=== PATIENT | female | born 1970 | race Caucasian/White ===

== ENCOUNTER 2016-08-16 00:34 | Emergency (ER) | payer OTHER ==
[2016-08-16 01:06] VITALS: BP 160/97; PULSE 78; TEMP 98.1; BMI 34.4
== END 2016-08-16 03:31 | disposition left against medical advice (07) ==
LOC: JER 00:34
DX: Z53.21 Procedure and treatment not carried out due to patient leaving prior to being seen by health care provider (principal)
CPT/HCPCS: 99281-25

== ENCOUNTER 2017-09-28 17:57 | Emergency (ER) | payer OTHER ==
--- NOTE | 2017-09-28 18:03 | PDOC ---
History of Present Illness - General Chief Complaint: Chest Pain Stated Complaint: CHEST PAIN Time Seen by Provider: 09/28/17 18:03 - History of Present Illness Initial Comments: 09/28/17 12:49 The patient is a 47 year old female with a history of DM who presents for evaluation of generalized weakness and chest pain. The patient is accompanied by family who assist in providing the history. They note that the patient recently presented to [facility] earlier this morning for these same symptoms and was diagnosed with hyperglycemia and discharged home after being medically cleared. The patient continued to experience symptoms prompting her presentation to the ED for further evaluation. The patient complains of generalized weakness and poorly described chest pain over the past 1 day. She otherwise denies fevers, chills, SOB, nausea, vomiting, or changes with urination or bowel movements. She does endorse some RUQ abdominal pain as well. Past History - Past Medical History Allergies/Adverse Reactions: Allergies Allergy/AdvReac Type Severity Reaction Status Date / Time No Known Allergies Allergy Verified 09/28/17 18:11 - Reproductive History (#): 9 Para: 8 Ectopic : No Polycystic Ovaries: No - Suicide/Smoking/Psychosocial Hx Smoking Status: No Smoking History: Never smoked Number of Cigarettes Smoked Daily: 0 Review of Systems - Review of Systems Comments:: 09/29/17 12:54 Constitutional: Fatigue. No fevers, chills, malaise HEENT: No Rhinorrhea, nasal congestion, visual changes Cardiovascular: Chest pain. No syncope, palpitations, lightheadedness Respiratory: No Cough, SOB, Hemoptysis, Gastrointestinal: Abdominal pain. No Nausea, Vomiting, Constipation, Diarrhea, Melena Genitourinary: No Dysuria, Frequency, Urgency, Hesitancy, Hematuria, Flank pain Musculoskeletal: No Myalgia, arthralgia Skin: No rashes, itching, bruising, pallor Neurologic: No Headache, Dizziness, Numbness, Weakness, or Tingling Psychiatric: No Hallucinations. No SI or HI *Physical Exam - Physical Exam Comments: 09/29/17 12:55 General Appearance: Nourished. No Apparent Distress HEENT: EOMI, MARILYN. No Pharyngeal Erythema, Tonsillar Exudate, Tonsillar Erythema Neck: No Cervical Lymphadenopathy Respiratory/Chest: Lungs Clear, Normal Breath Sounds. No Crackles, Rales, Rhonchi, Wheezing Cardiovascular: Regular Rhythm, Regular Rate. No Murmur, Gallops, Rubs Gastrointestinal/Abdominal: Normal Bowel Sounds, Soft. Mild Tenderness to palpation in the RUQ on exam. No Guarding, Rebound, Musculoskeletal: No CVA Tenderness Extremity: Normal Capillary Refill Integumentary: Normal Color, Dry, Warm Neurologic: Fully Oriented, Alert, Normal Mood/Affect, Normal Response, Heart Score/ECG Review #1 ECG reviewed & interpreted by me at: 12:56 General ECG Interpretation: Sinus Rhythm, Normal Rate, Normal Intervals, No acute ischemic changes ED Treatment Course - LABORATORY CBC & Chemistry Diagram: 09/28/17 18:15 09/28/17 18:15 Medical Decision Making - Medical Decision Making 09/29/17 12:56 The patient is a 47 year old female with a history of DM who presents for evaluation of generalized weakness and chest pain. Differential includes but is not limited to: ACS, Pneumonia, UTI, Cholecystitis, Hyperglycemia, Infectious , Metabolic derangement. Given the patient's symptoms we obtain a cbc which demonstrated an elevated wbc to 13.5. CMP demonstrated elevated glucose to 280 with a normal anion gap. UA demonstrated glucose in the urine. Gallbladder US obtained did not demonstrate cholecystitis as read by our radiologist. Chest plain was unremarkable as preliminarily read by ER physician. Two sets of Troponin were unremarkable. The patient reported significant improvement in her symptoms after iv fluids and iv tylenol. It is likely her symptoms are due to a viral syndrome. We are comfortable discharging the patient home with primary care provider follow up. We discussed the results, plan, and strict return precautions with the patient and her family who voiced understanding and is agreeable with the plan. *DC/Admit/Observation/Transfer Diagnosis at time of Disposition: Abdominal pain Qualifiers: Abdominal location: unspecified location Qualified Code(s): R10.9 - Unspecified abdominal pain Fever Qualifiers: Fever type: unspecified Qualified Code(s): R50.9 - Fever, unspecified - Discharge Dispostion Disposition: HOME Condition at time of disposition: Stable Decision to Admit order: No - Referrals - Patient Instructions Printed Discharge Instructions: DI for Viral Syndrome, DI for Chest Pain Additional Instructions: Please return to the ER if you experience concerning or worsening symptoms including worsening chest pain, fevers, or abdominal pain or vomiting. Your symptoms are likely due to a viral illness and you may use ibuprofen as needed at home to help manage your symptoms. Please call to schedule a follow up appointment with your primary care provider within 2-3 days to discuss your ER visit and further management of your symptoms. - Post Discharge Activity
[2017-09-28 18:11] VITALS: BMI 20.3
[2017-09-28 18:54] LABS: BASO % 0.9 % (0-2.0); EOS % 1.3 % (0-4.5); HEMATOCRIT 39.8 % (32.4-45.2); HEMOGLOBIN 12.7 GM/dL (10.7-15.3); LYMPH % 13.7 % (8-40); MCH 26.6 pg (25.7-33.7); MEAN CELL VOLUME 82.9 fl (80-96); MEAN PLT VOLUME 10.3 fl (7.5-11.1); MONO % 6.3 % (3.8-10.2); NEUT % 77.8 % (42.8-82.8); PLATELET COUNT 223 K/MM3 (134-434); RDW 13.5 % (11.6-15.6); WHITE BLOOD COUNT 13.6 K/mm3 (4.0-10.0)
[2017-09-28] MEDS ORDERED: SODIUM CHLORIDE 1,000 ML IV STA (19:10)
[2017-09-28 19:21] LABS: URINE APPEARANCE CLEAR; URINE BILIRUBIN NEGATIVE (<2.0 mg/dL); URINE COLOR LTYELLOW; URINE GLUCOSE (UA) 3+ (NEGATIVE); URINE KETONE TRACE (NEGATIVE); URINE LEUK ESTERASE NEGATIVE (NEGATIVE); URINE NITRITE NEGATIVE (NEGATIVE); URINE UROBILINOGEN NEGATIVE mg/dL (0.2-1.0)
[2017-09-28 19:24] LABS: ALBUMIN 3.1 g/dl (3.4-5.0); ANION GAP 7 (8-16); BLOOD UREA NITROGEN 5 mg/dL (7-18); CALCIUM 8.9 mg/dL (8.5-10.1); CHLORIDE 103 mmol/L (98-107); CO2 26 mmol/L (21-32); CREATININE 0.7 mg/dL (0.55-1.02); GLUCOSE,RANDOM 232 mg/dL (74-106); LIPASE 96 U/L (73-393); POTASSIUM 3.6 mmol/L (3.5-5.1); SGOT/AST 11 U/L (15-37); SGPT/ALT 22 U/L (12-78); SODIUM 136 mmol/L (136-145)
[2017-09-28 19:25] LABS: ALK PHOS 99 U/L (45-117); BILIRUBIN,TOTAL 0.7 mg/dL (0.2-1.0); TOT PROT 6.7 g/dl (6.4-8.2)
[2017-09-28 19:27] LABS: URINE PROTEIN 1+ (NEGATIVE)
[2017-09-28 19:36] LABS: EPI CELLS RARE /HPF (FEW); URINE MUCUS RARE
[2017-09-28] MEDS ORDERED: ACETAMINOPHEN 1000 MG/100 ML VIAL (NON FORMULARY) IVPB ONE (20:06)
--- NOTE | 2017-09-28 20:27 | PDOC ---
Attending Attestation - Resident Resident Name: French Chow - ED Attending Attestation I have performed the following: I have examined & evaluated the patient, The case was reviewed & discussed with the resident, I agree w/resident's findings & plan, Exceptions are as noted - Medical Decision Making 09/28/17 21:10 47yo F with hx HTN, NIDDM presents to the ED with multiple complaints including CP, fever, weakness, RUQ pain. Vitals unremarkable. Exam with inferior sternal ttp. Unclear what the etiology of the patients symptoms are, will check labs, UA , CXR, treat symptoms, and reassess. With regards to CP, HS is 3 as EKG is non ischemic, and cp is reproducible. Will check 2 troponins. Heart Score/ECG Review - History History: Slightly suspicious - Electrocardiogram EKG: Normal - Age Age: 45-65 - Risk Factors Based on the list above the patient has:: >/=3 risk factors or Hx atherosclerotic disease - Troponin Troponin: </= normal limit - Score Heart Score - Total: 3 #1 09/28/17 20:57 Twelve-lead EKG was performed and reviewed by me. Normal sinus rhythm, rate 94. Normal axis and intervals. No ST elevations
[2017-09-28] MEDS ORDERED: ACETAMINOPHEN INJECTION 100 ML IVPB ONE (20:41)
[2017-09-28] MEDS ORDERED: METOCLOPRAMIDE HCL INJECTION 10 MG/2 ML VIAL IVPUSH ONE (20:43)
[2017-09-28] MEDS ORDERED: METOCLOPRAMIDE HCL INJECTION 10 MG/2 ML VIAL ONE (20:58)
[2017-09-28 21:10] VITALS: TEMP 101.9
[2017-09-28] MEDS ORDERED: KETOROLAC TROMETHAMINE 15 MG/ML VIAL IVPUSH ONE (23:04)
[2017-09-28] MEDS ORDERED: KETOROLAC TROMETHAMINE 15 MG/ML VIAL ONE (23:34)
[2017-09-28 23:45] VITALS: BP 130/65; PULSE 88
--- NOTE | 2017-09-29 08:52 | EKG ---
Test Reason : Blood Pressure : / mmHG Vent. Rate : 094 BPM Atrial Rate : 094 BPM P-R Int : 142 ms QRS Dur : 100 ms QT Int : 340 ms P-R-T Axes : 046 007 009 degrees QTc Int : 425 ms NORMAL SINUS RHYTHM NORMAL ECG WHEN COMPARED WITH ECG OF 02-MAY-2006 15:28, NO SIGNIFICANT CHANGE WAS FOUND Confirmed by EVGENY SWENSON MD ([id number]) on 09/29/2017 8:51:40 AM Referred By: Confirmed By:EVGENY SWENSON MD
== END 2017-09-29 | disposition home or self-care (01) ==
LOC: JER 17:57
PROC: 3E0337Z Introduction of Electrolytic and Water Balance Substance into Peripheral Vein, Percutaneous Approach (ICD-10-PCS; principal; 2017-09-28)
PROC: 3E033NZ Introduction of Analgesics, Hypnotics, Sedatives into Peripheral Vein, Percutaneous Approach (ICD-10-PCS; 2017-09-28)
PROC: 3E033GC Introduction of Other Therapeutic Substance into Peripheral Vein, Percutaneous Approach (ICD-10-PCS; 2017-09-28)
DX: B34.9 Viral infection, unspecified (principal); R50.81 Fever presenting with conditions classified elsewhere; E11.9 Type 2 diabetes mellitus without complications; Z79.84 Long term (current) use of oral hypoglycemic drugs
CPT/HCPCS: 36415; 71046-TC-FY; 76705-TC; 80053; 81003; 81015; 82550; 83690; 84484; 84703; 85025; 87804; 93005; 93010; 96361; 96374; 96375; 99283-25; J0131; J7030

== ENCOUNTER 2017-10-11 16:33 | Emergency (ER) | payer OTHER ==
[2017-10-11 17:06] VITALS: TEMP 97.7; BMI 34.0
[2017-10-11] MEDS ORDERED: SODIUM CHLORIDE 0.9% 1000 ML INFUS.BAG IV ONE (18:00)
[2017-10-11] MEDS ORDERED: METOCLOPRAMIDE HCL INJECTION 10 MG/2 ML VIAL IVPUSH ONE (18:00)
--- NOTE | 2017-10-11 18:07 | PDOC ---
History of Present Illness - General History Source: Patient Exam Limitations: No Limitations - History of Present Illness Initial Comments: 10/11/17 18:30 The patient is a 47 year old female with a significant PMH of hypertension and diabetes who presents to the emergency department with chest pain since earlier today. The patient reports that she was at home cooking when she began to feel an onset of chest pain. The patient describes her chest pain as sharp and non radiating. She reports associated SOB, dizziness and nausea with her chest pain. The patient reports that she began to experience bleeding from her nose and mouth, chills and lightheadedness secondary to her nausea. The patient reports eating a bowl of cereal . She states that she has experienced a similar feeling like this before when her blood glucose was low. The patient denies any other symptoms. She denies any headache fever,chest pain, shortness of breath, dizziness, nausea, vomit, diarrhea, constipation or urinary symptoms. The patient denies any other complaints. <Светлана Stroud - Last Filed: 10/11/17 18:30> <Josephine Correa - Last Filed: 10/11/17 23:48> - General Chief Complaint: Chest Pain Stated Complaint: Nasal Bleeding Time Seen by Provider: 10/11/17 16:59 Past History <Светлана Stroud - Last Filed: 10/11/17 18:30> - Past Medical History COPD: No Diabetes: Yes HTN: Yes - Reproductive History (#): 9 Para: 8 Ectopic : No Polycystic Ovaries: No - Suicide/Smoking/Psychosocial Hx Smoking Status: No Smoking History: Never smoked Have you smoked in the past 12 months: No Number of Cigarettes Smoked Daily: 0 Hx Alcohol Use: No Drug/Substance Use Hx: No Substance Use Type: None <Josephine Correa - Last Filed: 10/11/17 23:48> - Past Medical History Allergies/Adverse Reactions: Allergies Allergy/AdvReac Type Severity Reaction Status Date / Time No Known Allergies Allergy Verified 10/11/17 17:06 Home Medications: Ambulatory Orders Cephalexin [Keflex] 500 mg PO BID #14 capsule 10/11/17 Review of Systems - Review of Systems Able to Perform ROS?: Yes Comments:: 10/11/17 18:31 GENERAL/CONSTITUTIONAL: (+)chills, nasal and mouth bleeding. No fever .No weakness. HEAD, EYES, EARS, NOSE AND THROAT: No change in vision. No ear pain or discharge. No sore throat. CARDIOVASCULAR: (+) chest pain , shortness of breath. RESPIRATORY: No cough, wheezing, or hemoptysis. GASTROINTESTINAL: No nausea, vomiting, diarrhea or constipation. GENITOURINARY: No dysuria, frequency, or change in urination. MUSCULOSKELETAL: No joint or muscle swelling or pain. No neck or back pain. SKIN: No rash NEUROLOGIC: (+)lightheaded. No headache, vertigo, loss of consciousness, or change in strength/sensation. ENDOCRINE: No increased thirst. No abnormal weight change. HEMATOLOGIC/LYMPHATIC: No anemia, easy bleeding, or history of blood clots. ALLERGIC/IMMUNOLOGIC: No hives or skin allergy. <Светлана Stroud - Last Filed: 10/11/17 18:30> *Physical Exam - Vital Signs Last Vital Signs Temp Pulse Resp BP Pulse Ox 97.7 F 81 22 153/93 99 10/11/17 17:03 10/11/17 17:03 10/11/17 17:03 10/11/17 17:03 10/11/17 17:03 - Physical Exam Comments: 10/11/17 18:31 GENERAL: Awake, alert, and fully oriented, in no acute distress HEAD: No signs of trauma EYES: PERRLA, EOMI, sclera anicteric, conjunctiva clear ENT: Auricles normal inspection, hearing grossly normal, no bleeding from nares , oropharynx clear without exudates. Moist mucosa NECK: Normal ROM, supple, no lymphadenopathy, JVD, or masses LUNGS: Breath sounds equal, clear to auscultation bilaterally. No wheezes, and no crackles no stigmata of bleeding from gums or throat. HEART: Regular rate and rhythm, normal S1 and S2, no murmurs, rubs or gallops ABDOMEN: Soft, nontender, normoactive bowel sounds. No guarding, no rebound. No masses EXTREMITIES: Normal range of motion, no edema. No clubbing or cyanosis. No cords, erythema, or tenderness NEUROLOGICAL: Cranial nerves II through XII grossly intact. Normal speech, normal gait SKIN: Warm, Dry, normal turgor, no rashes or lesions noted. <Светлана Stroud - Last Filed: 10/11/17 18:30> - Vital Signs Last Vital Signs Temp Pulse Resp BP Pulse Ox 97.7 F 81 22 153/93 99 10/11/17 17:03 10/11/17 17:03 10/11/17 17:03 10/11/17 17:03 10/11/17 17:03 <Josephine Correa - Last Filed: 10/11/17 23:48> Heart Score/ECG Review - ECG Intrepretation Comment:: 10/11/17 18:07 sinus at 79, nl axis, nl interval, lvh, q waves inferior leads that is age indeterminate <Josephine Correa - Last Filed: 10/11/17 23:48> ED Treatment Course - LABORATORY CBC & Chemistry Diagram: 10/11/17 18:30 10/11/17 18:30 - RADIOLOGY Radiology Studies Ordered: Category Date Time Status HEAD CT WITHOUT CONTRAST [CT] Stat CT Scan 10/11/17 17:59 Ordered CHEST X-RAY PORTABLE* [RAD] Stat Radiology 10/11/17 17:59 Ordered <Josephine Correa - Last Filed: 10/11/17 23:48> Medical Decision Making - Medical Decision Making 10/11/17 18:04 47yo female with cp and dizziness had epistaxis earlier, currently resolved, coughing recently midsternal cp without radiation hx of dm and htn glucose 400 lightheaded - near sycope will obtain labs, ekg, ct head, cxr will monitor hydrate with ivf hdyration will obtain vbg will most likely need obs for repeat trops and cardiac workup 10/11/17 21:21 re-eval: pt feeling much better no complaints of cp or lightheadeness at this time heading to CT now 10/11/17 22:[address] negative 10/11/17 23:45 repeat trop negative pt feeling much better requesting to go home. pt with a uti discussed checking her glucose and monitoring her sugar/dm at home. discussed dietary changes discussed need for follow up with Cards as an outpt discussed ct results will give Rx for UTI <Josephine Correa - Last Filed: 10/11/17 23:48> *DC/Admit/Observation/Transfer - Attestations Scribe Attestion: 10/11/17 18:31 Documentation prepared by Светлана Stroud, acting as vp medical for Josephine Correa MD. <Светлана Stroud - Last Filed: 10/11/17 18:30> - Discharge Dispostion Decision to Admit order: No - Attestations Physician Attestion: 10/11/17 23:48 I, Dr. Josephine Correa, DO, attest that this document has been prepared under my direction and personally reviewed by me in its entirety. I further attest, that it accurately reflects all work, treatment, procedures and medical decision -making performed by me. <Josephine Correa - Last Filed: 10/11/17 23:48> Diagnosis at time of Disposition: Chest pain, Lightheaded, UTI (urinary tract infection) - Discharge Dispostion Disposition: HOME Condition at time of disposition: Stable - Prescriptions Prescriptions: Cephalexin [Keflex] 500 mg PO BID #14 capsule - Referrals Referrals: Jose Don MD [Staff Physician] - Khai Clemons MD [Staff Physician] - Reji Wagner MD [Staff Physician] - - Patient Instructions Printed Discharge Instructions: DI for Chest Pain, DI for Urinary Tract Infection (UTI), DI for Hyperglycemia -- Adult Additional Instructions: Please take all medications as prescribed. Please make an appointment to see the document manager and the valuation consultant as an outpatient. Please make an appointment to see your PMD. Please drink plenty of water. Please return to the ED with any further concerns or complaints.
[2017-10-11] MEDS ORDERED: METOCLOPRAMIDE HCL INJECTION 10 MG/2 ML VIAL ONE (18:32)
[2017-10-11 18:37] LABS: BASO % 1.1 % (0-2.0); HEMATOCRIT 36.7 % (32.4-45.2); HEMOGLOBIN 12.1 GM/dL (10.7-15.3); LYMPH % 22.5 % (8-40); MCH 27.1 pg (25.7-33.7); MEAN CELL VOLUME 82.1 fl (80-96); MEAN PLT VOLUME 9.8 fl (7.5-11.1); MONO % 7.5 % (3.8-10.2); NEUT % 65.9 % (42.8-82.8); PLATELET COUNT 375 K/MM3 (134-434); RBC 4.47 M/mm3 (3.60-5.2); RDW 12.9 % (11.6-15.6); VENOUS PC02 36.7 mmHg (38-52); VENOUS PH 7.44 (7.32-7.42); WHITE BLOOD COUNT 10.4 K/mm3 (4.0-10.0)
[2017-10-11 18:51] VITALS: BP 127/64; PULSE 76
[2017-10-11 19:14] LABS: BLOOD UREA NITROGEN 8 mg/dL (7-18); CREATININE 0.7 mg/dL (0.55-1.02)
[2017-10-11 19:15] LABS: ANION GAP 8 (8-16); BILIRUBIN,TOTAL 0.3 mg/dL (0.2-1.0); CALCIUM 8.8 mg/dL (8.5-10.1); CHLORIDE 100 mmol/L (98-107); CO2 27 mmol/L (21-32); LIPASE 133 U/L (73-393); POTASSIUM 4.5 mmol/L (3.5-5.1); SGOT/AST 14 U/L (15-37); SGPT/ALT 26 U/L (12-78); SODIUM 135 mmol/L (136-145)
[2017-10-11 19:17] LABS: ALK PHOS 111 U/L (45-117)
[2017-10-11 19:29] LABS: GLUCOSE,RANDOM 310 mg/dL (74-106)
[2017-10-11 20:23] LABS: URINE APPEARANCE SLCLOUDY; URINE BILIRUBIN NEGATIVE (<2.0 mg/dL); URINE BLOOD 1+ (NEGATIVE); URINE COLOR LTYELLOW; URINE GLUCOSE (UA) 3+ (NEGATIVE); URINE KETONE NEGATIVE (NEGATIVE); URINE LEUK ESTERASE TRACE (NEGATIVE); URINE NITRITE NEGATIVE (NEGATIVE); URINE UROBILINOGEN NEGATIVE mg/dL (0.2-1.0)
[2017-10-11 20:39] LABS: HCG,QUALITATIVE URINE NEGATIVE
[2017-10-11 20:45] LABS: URINE PROTEIN 1+ (NEGATIVE)
[2017-10-11 20:46] LABS: EPI CELLS RARE /HPF (FEW); URINE MUCUS RARE
[2017-10-11 22:49] LABS: PLATELET ESTIMATE ADEQUATE
[2017-10-11] MEDS ORDERED: CEPHALEXIN MONOHYDRATE 500 MG CAPSULE (UD) PO ONE (23:44)
[2017-10-11] MEDS ORDERED: ASPIRIN 81 MG CHEWABLE TABLETS PO ONE (23:46)
[2017-10-12] MEDS ORDERED: CEPHALEXIN MONOHYDRATE 500 MG CAPSULE (UD) ONE (00:01)
[2017-10-12] MEDS ORDERED: ASPIRIN 325 MG TABLET ONE (00:01)
--- NOTE | 2017-10-12 10:25 | EKG ---
Test Reason : Blood Pressure : / mmHG Vent. Rate : 079 BPM Atrial Rate : 079 BPM P-R Int : 140 ms QRS Dur : 096 ms QT Int : 372 ms P-R-T Axes : 031 -04 -01 degrees QTc Int : 426 ms NORMAL SINUS RHYTHM MODERATE VOLTAGE CRITERIA FOR LVH, MAY BE NORMAL VARIANT INFERIOR INFARCT , AGE UNDETERMINED ABNORMAL ECG WHEN COMPARED WITH ECG OF 28-SEP-2017 18:13, NO SIGNIFICANT CHANGE WAS FOUND Confirmed by PARESH PRICE MD ([id number]) on 10/12/2017 10:24:45 AM Referred By: Confirmed By:PARESH PRICE MD
== END 2017-10-12 00:16 | disposition home or self-care (01) ==
LOC: JER 16:33
PROC: 3E033GC Introduction of Other Therapeutic Substance into Peripheral Vein, Percutaneous Approach (ICD-10-PCS; principal; 2017-10-11)
DX: R07.89 Other chest pain (principal); N39.0 Urinary tract infection, site not specified; R42 Dizziness and giddiness; I10 Essential (primary) hypertension; E11.9 Type 2 diabetes mellitus without complications
CPT/HCPCS: 36415; 70450-TC; 71045-TC-FY; 80053; 81003; 81015; 82009; 82550; 82803; 82962; 83690; 83735; 83880; 84484; 84703; 85025; 93005; 93010; 99285-25; J7030

== ENCOUNTER 2017-10-13 02:56 | Emergency (ER) | payer OTHER ==
[2017-10-13 03:28] VITALS: BP 156/88; PULSE 76; TEMP 98.4; BMI 34.0
--- NOTE | 2017-10-13 03:34 | PDOC ---
Attending Attestation - Resident Resident Name: Luis F Blank - HPI HPI: 10/13/17 05:16 Pt presents to the ED complaining of R sided pleuritic chest pain that recurred after her visit to the ED with negative work up yesterday. Presents today because her pain recurred and she was told to return to the ED for recurrent pain. Pain is constant, worse with deep breath or with movement. Denies shortness of breath. Pain is similar to the pain that prompted her visit yesterday. 10/13/17 05:35 10/16/17 10:08 - Physicial Exam PE: 10/16/17 10:09 Agree with resident exam. PAtient is well appearing and in no acute distress. Lungs are clear. Heart has regular rate and rhythm. Abdomen is soft, non tender and non distended. - Medical Decision Making 10/16/17 10:11 Pt presents to the ED complaining of chest pain, after negative cardiac work up yesterday. EKG shows no evidence of ischemia. Cardiac enzymes checked to rule out ACS and are negative. HEART score is less than 3. Will discharge home. 10/16/17 10:12
[2017-10-13] MEDS ORDERED: ACETAMINOPHEN 1000 MG/100 ML VIAL (NON FORMULARY) IVPB ONE (04:35)
--- NOTE | 2017-10-13 04:35 | PDOC ---
History of Present Illness - General Chief Complaint: Chest Pain Stated Complaint: CHEST PAIN Time Seen by Provider: 10/13/17 03:31 - History of Present Illness Initial Comments: 10/13/17 05:42 47F with pmh of htn and diabetes came back to the ED following previous visit earlier today for similar symptom of pleuritic chest pain. Upon discharge patient was advised to come back if pain persisted which did. Cardiac etiology was ruled out at the time. 10/13/17 05:42 Past History - Past Medical History Allergies/Adverse Reactions: Allergies Allergy/AdvReac Type Severity Reaction Status Date / Time No Known Allergies Allergy Verified 10/13/17 03:28 Home Medications: Ambulatory Orders Cephalexin [Keflex] 500 mg PO BID #14 capsule 10/11/17 Lisinopril 10 mg PO DAILY 10/13/17 Metformin HCl [Metformin HCl ER] 1,000 mg PO BID 10/13/17 COPD: No Diabetes: Yes HTN: Yes - Reproductive History (#): 9 Para: 8 Ectopic : No Polycystic Ovaries: No - Suicide/Smoking/Psychosocial Hx Smoking Status: No Smoking History: Never smoked Have you smoked in the past 12 months: No Number of Cigarettes Smoked Daily: 0 Information on smoking cessation initiated: No Hx Alcohol Use: No Drug/Substance Use Hx: No Substance Use Type: None Review of Systems - Review of Systems Able to Perform ROS?: Yes Is the patient limited Occitan proficient: No Constitutional: No: Symptoms Reported HEENTM: No: Symptoms Reported Respiratory: No: Symptoms reported Cardiac (ROS): Yes: Chest Pain ABD/GI: No: Symptoms Reported : No: Symptoms Reported Musculoskeletal: No: Symptoms Reported Integumentary: No: Symptoms Reported *Physical Exam - Vital Signs Last Vital Signs Temp Pulse Resp BP Pulse Ox 98.4 F 76 19 156/88 98 10/13/17 03:24 10/13/17 03:24 10/13/17 03:24 10/13/17 03:24 10/13/17 04:01 - Physical Exam General Appearance: Yes: Nourished, Appropriately Dressed, Obese. No: Apparent Distress HEENT: positive: EOMI, MARILYN, Normal ENT Inspection Respiratory/Chest: positive: Chest Tender (paul right side). negative: Crackles , Rales, Dullness, Plerual Rub Cardiovascular: positive: Regular Rhythm, Regular Rate, S1, S2 Gastrointestinal/Abdominal: positive: Flat. negative: Tender Integumentary: positive: Normal Color, Dry, Warm Neurologic: positive: Fully Oriented, Alert, Normal Mood/Affect ED Treatment Course - LABORATORY CBC & Chemistry Diagram: 10/13/17 04:40 - ADDITIONAL ORDERS Additional order review: Laboratory Results 10/13/17 04:40 Creatine Kinase 86 Troponin I < 0.02 10/13/17 04:40 RBC 4.35 MCV 82.8 MCHC 32.0 RDW 13.3 MPV 10.5 Neutrophils % 65.7 Lymphocytes % 24.4 Monocytes % 5.8 Eosinophils % 3.2 Basophils % 0.9 - Medications Given in the ED: ED Medications Discontinued Medications Generic Name Dose Route Start Last Admin Trade Name Francy PRN Reason Stop Dose Admin Acetaminophen 1,000 mg 10/13/17 04:35 10/13/17 04:45 Ofirmev Injection - IVPB 10/13/17 04:36 1,000 mg ONCE ONE Administration *DC/Admit/Observation/Transfer Diagnosis at time of Disposition: Chest pain, atypical - Discharge Dispostion Disposition: HOME Condition at time of disposition: Improved Decision to Admit order: No - Referrals - Patient Instructions Printed Discharge Instructions: DI for Atypical Chest Pain Additional Instructions: Follow up with your primary care provider within the week. Come back to the ED for any new, worsening or concerning symptom. - Post Discharge Activity
[2017-10-13 04:59] LABS: BASO % 0.9 % (0-2.0); EOS % 3.2 % (0-4.5); HEMATOCRIT 36.1 % (32.4-45.2); HEMOGLOBIN 11.5 GM/dL (10.7-15.3); LYMPH % 24.4 % (8-40); MCH 26.5 pg (25.7-33.7); MEAN CELL VOLUME 82.8 fl (80-96); MEAN PLT VOLUME 10.5 fl (7.5-11.1); MONO % 5.8 % (3.8-10.2); NEUT % 65.7 % (42.8-82.8); PLATELET COUNT 352 K/MM3 (134-434); RBC 4.35 M/mm3 (3.60-5.2); RDW 13.3 % (11.6-15.6); WHITE BLOOD COUNT 11.4 K/mm3 (4.0-10.0)
--- NOTE | 2017-10-23 15:17 | EKG ---
Test Reason : Blood Pressure : / mmHG Vent. Rate : 076 BPM Atrial Rate : 076 BPM P-R Int : 148 ms QRS Dur : 100 ms QT Int : 382 ms P-R-T Axes : 052 003 005 degrees QTc Int : 429 ms NORMAL SINUS RHYTHM MINIMAL VOLTAGE CRITERIA FOR LVH, MAY BE NORMAL VARIANT BORDERLINE ECG Confirmed by MD Eugenia, Gibson ([id number]) on 10/23/2017 3:17:17 PM Referred By: Confirmed By:Gibson Bello MD
== END 2017-10-13 06:01 | disposition home or self-care (01) ==
LOC: JER 02:56
PROC: 3E033NZ Introduction of Analgesics, Hypnotics, Sedatives into Peripheral Vein, Percutaneous Approach (ICD-10-PCS; principal; 2017-10-13)
DX: R07.89 Other chest pain (principal); I10 Essential (primary) hypertension; E11.9 Type 2 diabetes mellitus without complications
CPT/HCPCS: 36415; 82550; 84484; 85025; 93005; 93010; 99285-25; J0131

== ENCOUNTER 2018-02-20 23:44 | Observation (INO) | payer OTHER ==
[2018-02-21] MEDS ORDERED: ASPIRIN 81 MG CHEWABLE TABLETS PO ONE (00:39)
[2018-02-21] MEDS ORDERED: NITROGLYCERIN 2% OINTMENT - 1GM PACKET TD ONE ×2 (00:40→02:11)
[2018-02-21] MEDS ORDERED: RANITIDINE HCL 150 MG TABLET (FP) PO ONE (00:40)
--- NOTE | 2018-02-21 01:22 | PDOC ---
History of Present Illness - General History Source: Patient, Family Exam Limitations: No Limitations <Jericho Rodgers - Last Filed: 02/21/18 01:23> <Steve Preciado - Last Filed: 02/21/18 02:58> - General Chief Complaint: Chest Pain Stated Complaint: CHEST PAIN Time Seen by Provider: 02/21/18 00:12 - History of Present Illness Initial Comments: 02/21/18 01:23 The patient is a 47 year old female presenting with her daughter, with a significant past medical history of HTN and diabetes, who presents to the ED complaining of chest pain that began 1 hour prior to presentation. She describes her chest pain as ranging moderate, rating it a 7/10 in severity. She denies any radiation and notes movement exacerbates his pain. The patient was last in the ED on 10/13/17 for chest pain, was evaluated and discharged after improvements of symptoms. Her daughter notes that the patient has not been compliant checking her sugar levels. The patient denies shortness of breath, headache and dizziness. Denies fever, chills, nausea, vomiting, diarrhea or constipation. Denies dysuria, frequency, urgency and hematuria. Allergies: None Past surgical history: None reported Social History: No alcohol, tobacco or drug use reported (Jericho Rodgers) Past History <Jericho Rodgers - Last Filed: 02/21/18 01:23> - Past Medical History COPD: No Diabetes: Yes HTN: Yes - Reproductive History (#): 9 Para: 8 Ectopic : No Polycystic Ovaries: No - Suicide/Smoking/Psychosocial Hx Smoking Status: No Smoking History: Never smoked Have you smoked in the past 12 months: No Number of Cigarettes Smoked Daily: 0 Hx Alcohol Use: No Drug/Substance Use Hx: No Substance Use Type: None <Steve Preciado - Last Filed: 02/21/18 02:58> - Past Medical History Allergies/Adverse Reactions: Allergies Allergy/AdvReac Type Severity Reaction Status Date / Time No Known Allergies Allergy Verified 02/20/18 23:49 Home Medications: Ambulatory Orders Metformin HCl [Metformin HCl ER] 1,000 mg PO BID 10/13/17 Review of Systems - Review of Systems Able to Perform ROS?: Yes <Jericho Rodgers - Last Filed: 02/21/18 01:23> <Steve Preciado - Last Filed: 02/21/18 02:58> - Review of Systems Comments:: 02/21/18 01:24 CONSTITUTIONAL: No fever, no chills, no fatigue EYES: No visual changes ENT: No ear pain, no sore throat CARDIOVASCULAR: (+) Chest pain. No palpitations RESPIRATORY: No cough, no SOB GI: No abdominal pain, no nausea, no vomiting, no constipation, no diarrhea GENITOURINARY: No dysuria, no frequency, no hematuria MUSKULOSKELETAL: No backpain, no joint pain, no myalgias SKIN: No rash NEURO: No headache (Jericho Rodgers) *Physical Exam <Jericho Rodgers - Last Filed: 02/21/18 01:23> <Steve Preciado - Last Filed: 02/21/18 02:58> - Vital Signs Last Vital Signs Temp Pulse Resp BP Pulse Ox 98.7 F 86 18 155/86 99 02/20/18 23:47 02/20/18 23:47 02/20/18 23:47 02/20/18 23:47 02/20/18 23:47 - Physical Exam Comments: 02/21/18 01:24 CONSTITUTIONAL: Well-appearing; well-nourished; in no apparent distress HEAD: Normocephalic; atraumatic EYES: PERRL; EOM intact ENMT: External appears normal; normal oropharynx NECK: Supple; non-tender; no cervical lymphadenopathy CARD: (+) Reproducible parasternal tenderness at 2nd and 3rd intercoastal. Normal S1, S2; no murmurs, rubs, or gallops RESP: Normal chest excursion with respiration; breath sounds clear and equal bilaterally; no wheezes, rhonchi, or rales ABD: Soft, non-distended; non-tender; no palpable organomegaly, no palpable hernias EXT: Normal ROM in all four extremities; non-tender to palpation; distal pulses intact SKIN: Warm, dry, no rash NEURO: No focal neurological deficiencies. (Jericho Rodgers) ED Treatment Course - LABORATORY CBC & Chemistry Diagram: 02/21/18 02:00 02/21/18 02:00 <Steve Preciado - Last Filed: 02/21/18 02:58> - ADDITIONAL ORDERS Additional order review: Laboratory Results 02/21/18 02/21/18 02:00 02:00 Sodium 139 Potassium 4.2 Chloride 105 Carbon Dioxide 27 Anion Gap 7 L BUN 11 Creatinine 0.7 Creat Clearance w eGFR > 60 Random Glucose 313 H* Calcium 8.7 Total Bilirubin < 0.1 L AST 17 ALT 20 Alkaline Phosphatase 123 H Creatine Kinase 101 Troponin I < 0.02 Total Protein 6.4 Albumin 3.0 L Serum , Qual Negative 02/21/18 02:00 RBC 4.57 MCV 83.6 MCHC 31.8 L RDW 13.7 MPV 10.3 Neutrophils % 53.3 Lymphocytes % 31.0 D Monocytes % 7.4 Eosinophils % 7.3 H D Basophils % 1.0 - RADIOLOGY Radiology Studies Ordered: Category Date Time Status CHEST X-RAY PORTABLE* [RAD] Stat Radiology 02/21/18 00:38 Taken - Medications Given in the ED: ED Medications Discontinued Medications Generic Name Dose Route Start Last Admin Trade Name Freq PRN Reason Stop Dose Admin Aspirin 162 mg 02/21/18 00:39 02/21/18 02:23 Asa - PO 02/21/18 00:40 162 mg ONCE ONE Administration Nitroglycerin 1 inch 02/21/18 00:40 02/21/18 02:23 Nitro-Bid 2% Paste - TD 02/21/18 00:41 1 inch ONCE ONE Administration Ranitidine HCl 150 mg 02/21/18 00:40 02/21/18 02:23 Zantac - PO 02/21/18 00:41 150 mg ONCE ONE Administration Medical Decision Making <Jericho Rodgers - Last Filed: 02/21/18 01:23> <Steve Preciado - Last Filed: 02/21/18 02:58> - Medical Decision Making 02/21/18 02:42 47-year-old female with poorly controlled diabetes, presents to the ER with atypical chest pain. EKG shows no evidence of acute ischemia. LVH is noted. Chest x-ray reveals persistent cardiomegaly with cephalization. Will obtain cardiac enzymes. Patient is negative for PE by the Perc we'll consider placing an observation for serial cardiac enzymes and cardiac evaluation. Rule. ( Steve Preciado) *DC/Admit/Observation/Transfer <Jericho Rodgers - Last Filed: 02/21/18 01:23> - Discharge Dispostion Decision to Admit order: Yes <Steve Preciado - Last Filed: 02/21/18 02:58> Diagnosis at time of Disposition: Chest pain, atypical, Hyperglycemia - Discharge Dispostion Condition at time of disposition: Fair - Referrals Referrals: Blade Silvestre MD [Primary Care Provider] - - Patient Instructions - Post Discharge Activity - Attestations Scribe Attestion: 02/21/18 01:24 Documentation prepared by Jericho Rodgers, acting as resident medical officer for Steve Preciado MD (Jericho Rodgers)
[2018-02-21] MEDS ORDERED: ASPIRIN 81 MG CHEWABLE TABLETS ONE (02:10)
[2018-02-21] MEDS ORDERED: RANITIDINE HCL 150 MG TABLET (FP) ONE (02:10)
[2018-02-21 02:16] LABS: EOS % 7.3 % (0-4.5); HEMATOCRIT 38.2 % (32.4-45.2); HEMOGLOBIN 12.1 GM/dL (10.7-15.3); MCH 26.6 pg (25.7-33.7); MCHC 31.8 g/dl (32.0-36.0); MEAN CELL VOLUME 83.6 fl (80-96); MEAN PLT VOLUME 10.3 fl (7.5-11.1); MONO % 7.4 % (3.8-10.2); NEUT % 53.3 % (42.8-82.8); PLATELET COUNT 257 K/MM3 (134-434); RBC 4.57 M/mm3 (3.60-5.2); RDW 13.7 % (11.6-15.6); WHITE BLOOD COUNT 8.3 K/mm3 (4.0-10.0)
[2018-02-21 02:44] LABS: ALK PHOS 123 U/L (45-117); ANION GAP 7 MMOL/L (8-16); BILIRUBIN,TOTAL < 0.1 mg/dL (0.2-1); BLOOD UREA NITROGEN 11 mg/dL (7-18); CALCIUM 8.7 mg/dL (8.5-10.1); CHLORIDE 105 mmol/L (98-107); CO2 27 mmol/L (21-32); CREATININE 0.7 mg/dL (0.55-1.3); POTASSIUM 4.2 mmol/L (3.5-5.1); SGOT/AST 17 U/L (15-37); SGPT/ALT 20 U/L (13-61); SODIUM 139 mmol/L (136-145); TOT PROT 6.4 g/dl (6.4-8.2)
[2018-02-21 02:49] LABS: GLUCOSE,RANDOM 313 mg/dL (74-106)
[2018-02-21] MEDS ORDERED: INSULIN REGULAR HUMAN 100 UNITS/ML *VIAL SQ ONE (02:49)
[2018-02-21] MEDS ORDERED: INSULIN REGULAR HUMAN 100 UNITS/ML *VIAL ONE (02:57)
[2018-02-21] MEDS ORDERED: ACETAMINOPHEN 325 MG TABLET (FP) ONE (03:50)
[2018-02-21] MEDS ORDERED: ACETAMINOPHEN 325 MG TABLET (FP) PO ONE (03:52)
--- NOTE | 2018-02-21 06:40 | PN ---
Teaching Attending Note Name of Resident: Wali Khan ATTENDING PHYSICIAN STATEMENT I saw and evaluated the patient. Chart, data, imaging reviewed. I reviewed the resident's note and discussed the case with the resident. I agree with the resident's findings and plan as documented. SUBJECTIVE: 47 year old female presenting with her daughter, with a significant past medical history of HTN and uncontrolled DM, multiple ER visits for CP, c/o chest pain, dull, no relation to exertion, reproducible for 1 day. Patient is a nonsmoker ad no family history of cardiac disease. Was previously referred for cardiac stress test but did not follow up. OBJECTIVE: Last Vital Signs Temp Pulse Resp BP Pulse Ox 98.7 F 75 20 119/75 98 02/20/18 23:47 02/21/18 06:18 02/21/18 06:18 02/21/18 06:18 02/21/18 06:18 general- obese, nontoxic heent -at, moist oral mucosa neck supple cv -s1+s2+rrr chest clear abdomen -obese, nt ext -no edema Abnormal Lab Results 02/21/18 02/21/18 02:00 02:00 MCHC 31.8 L Eosinophils % 7.3 H D Anion Gap 7 L Random Glucose 313 H* Total Bilirubin < 0.1 L Alkaline Phosphatase 123 H Albumin 3.0 L EKG -reviewed, nsr, no acute ischemic changes seen cxr- reviewed ASSESSMENT AND PLAN: 47yo woman with recurrent atypical chest pain. EKG wnl and trop neg. May be musculoskeletal in nature. Patient counseled on importance of performing cardiac stress test. -monitor on tele-obs -trend troponin -ASA -nitroglycerin sublingual prn -trial of ibuprofen po prn for pain -supplemental oxygen via nasal cannula -cardiac stress test #Hyperglycemia- no AG or acetones -send a1c -diabetic diet -inuslin sliding scale -basal insulin 10 units qhs heparin sc for dvt ppx
[2018-02-21] MEDS ORDERED: INSULIN (NOVOLOG) ASPART 100 UNITS/ML 10ML VIAL ONE (08:04)
[2018-02-21] MEDS: HEPARIN NA (PORCINE) 5,000 UNITS/ML 1ML VIAL SQ SCH ×2 (08:07→13:19)
[2018-02-21] MEDS: INSULIN SLIDING SCALE (NOVOLOG) 1 VIAL SQ SCH ×4 (08:09→16:49)
--- NOTE | 2018-02-21 08:09 | HP ---
CHIEF COMPLAINT: Chest Pain PCP: Dr Silvestre HISTORY OF PRESENT ILLNESS: Pt is a 47 y/o lady with a significant past medical history of HTN and DM. Pt presented to [facility] early this morning complaining of chest pain, 7/0 in severity. Pt states this pain occurred around midnight. Pain is not related to exertion ad is reproducible with palpation. Pt has been seen in our ED multiple times in the past for similar c/o chest pain and found to have normal labs. Pt was last seen in our ER 10/13/17 and found to have negative cardiac work up. EKG showed no evidence of ischemia and cardiac enzymes did not indicate any signs of ACS. Pt's daughter at bedside. Pt states she does not take any medications for her blood pressure and states she does not check her blood sugar levels regularly. Denies LOC, nausea, or vomiting. ER course was notable for: (1) Troponin <0.02 (2) BGM 313 (3) EKG--> nsr, no acute ischemic changes appreciated. LVH. Recent Travel: Denies PAST MEDICAL HISTORY: Per HPI PAST SURGICAL HISTORY: None reported Social History: Smoking:denies Alcohol: denies Drugs: denies Family History: denies any family history of cardiac disease Allergies denies No Known Allergies Allergy (Verified 02/20/18 23:49) HOME MEDICATIONS: Home Medications Medication Instructions Recorded Metformin HCl [Metformin HCl ER] 1,000 mg PO BID 10/13/17 Aspirin [ASA -] 81 mg PO DAILY 02/21/18 REVIEW OF SYSTEMS CONSTITUTIONAL: Absent: fever, chills, diaphoresis, generalized weakness, malaise, loss of appetite, weight change HEENT: PRESENT: Headache CARDIOVASCULAR: PRESENT chest pain, palpitations, lightheadedness RESPIRATORY: Absent: cough, shortness of breath, dyspnea with exertion, orthopnea, wheezing, stridor, hemoptysis GASTROINTESTINAL: Absent: abdominal pain, abdominal distension, nausea, vomiting, diarrhea, constipation, melena, hematochezia GENITOURINARY: Absent: dysuria, frequency, urgency, hesitancy, hematuria, flank pain, genital pain MUSCULOSKELETAL: Absent: myalgia, arthralgia, joint swelling, back pain, neck pain SKIN: Absent: rash, itching, pallor HEMATOLOGIC/IMMUNOLOGIC: Absent: easy bleeding, easy bruising, lymphadenopathy, frequent infections ENDOCRINE: Absent: unexplained weight gain, unexplained weight loss, heat intolerance, cold intolerance NEUROLOGIC: Absent: headache, focal weakness or paresthesias, dizziness, unsteady gait, seizure, mental status changes, bladder or bowel incontinence PSYCHIATRIC: Absent: anxiety, depression, suicidal or homicidal ideation, hallucinations. PHYSICAL EXAMINATION Vital Signs - 24 hr 02/20/18 02/21/18 23:47 06:18 Temperature 98.7 F Pulse Rate 86 Pulse Rate [ 75 Right] Respiratory 18 20 Rate Blood Pressure 155/86 Blood Pressure 119/75 [Left Arm] O2 Sat by Pulse 99 98 Oximetry (%) GENERAL: AAOx3, NAD HEAD: NC/AT. EYES: PERRLA, EOMI EARS, NOSE, THROAT: MMM NECK: Supple LUNGS: CTA B/L HEART: RRR No MRG S1 S2 ABDOMEN: Soft ND NT No HSM MUSCULOSKELETAL: FROM throughout UPPER EXTREMITIES: No CCE LOWER EXTREMITIES: No CCE, No cracks or open wounds in feet b/l . NEUROLOGICAL: CN 2-12 intact PSYCHIATRIC: Cooperative. Good eye contact. Appropriate mood and affect. SKIN: Warm, no rashes or lesions appreciated Laboratory Results - last 24 hr 02/21/18 02/21/18 02/21/18 02:00 02:00 02:00 WBC 8.3 RBC 4.57 Hgb 12.1 Hct 38.2 MCV 83.6 MCH 26.6 MCHC 31.8 L RDW 13.7 Plt Count 257 D MPV 10.3 Absolute Neuts (auto) 4.4 Neutrophils % 53.3 Lymphocytes % 31.0 D Monocytes % 7.4 Eosinophils % 7.3 H D Basophils % 1.0 Nucleated RBC % 0 Sodium 139 Potassium 4.2 Chloride 105 Carbon Dioxide 27 Anion Gap 7 L BUN 11 Creatinine 0.7 Creat Clearance w eGFR > 60 POC Glucometer Random Glucose 313 H* Calcium 8.7 Total Bilirubin < 0.1 L AST 17 ALT 20 Alkaline Phosphatase 123 H Creatine Kinase 101 Troponin I < 0.02 Total Protein 6.4 Albumin 3.0 L Serum , Qual Negative 02/21/18 07:20 WBC RBC Hgb Hct MCV MCH MCHC RDW Plt Count MPV Absolute Neuts (auto) Neutrophils % Lymphocytes % Monocytes % Eosinophils % Basophils % Nucleated RBC % Sodium Potassium Chloride Carbon Dioxide Anion Gap BUN Creatinine Creat Clearance w eGFR POC Glucometer 246.44646 Random Glucose ChsCalcium Total Bilirubin AST ALT Alkaline Phosphatase Creatine Kinase Troponin I Total Protein Albumin Serum , Qual ASSESSMENT/PLAN: Pt is a 47 y/o lady with a significant past medical history of HTN and DM. Pt presented to [facility] early this morning complaining of chest pain, 7/0 in severity. #Chest Pain 2/2 ACS? -Troponin <0.02. Repeat Troponin pending - EKG--> no evidence of acute ischemia. -Pain reproducible -Cardiology consult -Daily Aspirin -Low dose Statin - Eran-Inhibitor -Possible Stress Test as inpatient. -Ibuprofen/Tylenol PRN for pain -Sublingual Nitro PRN #DM -Insulin Sliding Scale ACHS - Resume Metformin - Dietary modifications - Addition of Lisinopril as renal protective agent -A1C FEN LR@75cc/hr Monitor Electrolytes NPO DVT ppx: Hep SQ TID Dispo: Tele Obs Visit type - Emergency Visit Emergency Visit: Yes ED Registration Date: 02/21/18 Care time: The patient presented to the Emergency Department on the above date and was hospitalized for further evaluation of their emergent condition. - New Patient This patient is new to me today: Yes Date on this admission: 02/21/18 - Critical Care Critical Care patient: No
[2018-02-21 08:16] VITALS: BMI 38.3
[2018-02-21 08:44] LABS: BASO % 0.4 % (0-2.0); EOS % 7.6 % (0-4.5); HEMATOCRIT 36.7 % (32.4-45.2); HEMOGLOBIN 11.7 GM/dL (10.7-15.3); LYMPH % 32.3 % (8-40); MCH 26.6 pg (25.7-33.7); MEAN CELL VOLUME 83.1 fl (80-96); MEAN PLT VOLUME 10.5 fl (7.5-11.1); MONO % 8.3 % (3.8-10.2); NEUT % 51.4 % (42.8-82.8); PLATELET COUNT 233 K/MM3 (134-434); RBC 4.41 M/mm3 (3.60-5.2); RDW 13.3 % (11.6-15.6); WHITE BLOOD COUNT 7.9 K/mm3 (4.0-10.0)
[2018-02-21] MEDS ORDERED: LACTATED RINGERS SOLUTION 1,000 ML/1,000 ML INFUS.BAG IV SCH (08:45)
[2018-02-21 08:56] LABS: INR 0.94 (0.83-1.09); PROTHROMBIN TIME (PATIENT) 11.1 SEC (9.7-13.0)
[2018-02-21 08:59] LABS: ACTIVATED PTT 24.1 SECONDS (25.2-36.5)
[2018-02-21] MEDS ORDERED: SODIUM CHLORIDE 1,000 ML IV SCH (09:00)
[2018-02-21 09:11] LABS: ANION GAP 8 MMOL/L (8-16); BLOOD UREA NITROGEN 9 mg/dL (7-18); CALCIUM 8.6 mg/dL (8.5-10.1); CHLORIDE 106 mmol/L (98-107); CHOLESTEROL 126 mg/dL (50-200); CO2 25 mmol/L (21-32); CREATININE 0.6 mg/dL (0.55-1.3); GLUCOSE,RANDOM 231 mg/dL (74-106); HDL CHOLESTEROL 46 mg/dL (40-60); MAGNESIUM 1.7 mg/dL (1.8-2.4); PHOSPHOROUS 3.4 mg/dL (2.5-4.9); POTASSIUM 3.9 mmol/L (3.5-5.1); SODIUM 139 mmol/L (136-145); TRIGLYCERIDES 126 mg/dL (0-150)
--- NOTE | 2018-02-21 09:20 | EKG ---
Test Reason : Blood Pressure : / mmHG Vent. Rate : 061 BPM Atrial Rate : 061 BPM P-R Int : 140 ms QRS Dur : 108 ms QT Int : 412 ms P-R-T Axes : 053 007 016 degrees QTc Int : 414 ms NORMAL SINUS RHYTHM MINIMAL VOLTAGE CRITERIA FOR LVH, MAY BE NORMAL VARIANT BORDERLINE ECG WHEN COMPARED WITH ECG OF 13-OCT-2017 03:26, NO SIGNIFICANT CHANGE WAS FOUND Confirmed by ROBERT PEREZ, JERAD ([id number]) on 02/21/2018 9:20:18 AM Referred By: Confirmed By:JERAD JONES MD
--- NOTE | 2018-02-21 09:57 | CON.CARD ---
Cardiology Consult (text) - Consultation Consultation Note: cc: cp hpi: 47 f hx dm, htn, hld here with cp. Last night was moving her bed and shortly after felt sore pain in central chest area. No sob palps dizzy loc pnd orthopnea le edema. Pain less this AM. Few mos ago had similar cp. No hx hrt dz. No recent cardiac testing. pmh: per hpi psh: nc social: no tob fam: no premature cad, scd ros: per hpi; no nvd fever cough carrizales wt loss gib hematuria dysuria meds: Home Medications Medication Instructions Recorded Metformin HCl [Metformin HCl ER] 1,000 mg PO BID 10/13/17 Aspirin [ASA -] 81 mg PO DAILY 02/21/18 pe: Vital Signs Period Temp Pulse Resp BP Sys/Medel Pulse Ox Last 24 Hr 98 F-98.7 F 65-86 18-20 119-155/75-87 98-99 nad no jvd rrr s1s2 no mrg cta bl nl eff aaox3 no le e/c/c abd nt nd pos bs no jaundice diaphoresis pos dp pt no carotid bruits chest wall tenderness Laboratory Last Values WBC 7.9 K/mm3 (4.0-10.0) 02/21/18 08:30 RBC 4.41 M/mm3 (3.60-5.2) 02/21/18 08:30 Hgb 11.7 GM/dL (10.7-15.3) 02/21/18 08:30 Hct 36.7 % (32.4-45.2) 02/21/18 08:30 MCV 83.1 fl (80-96) 02/21/18 08:30 MCH 26.6 pg (25.7-33.7) 02/21/18 08:30 MCHC 32.0 g/dl (32.0-36.0) 02/21/18 08:30 RDW 13.3 % (11.6-15.6) 02/21/18 08:30 Plt Count 233 K/MM3 (134-434) 02/21/18 08:30 MPV 10.5 fl (7.5-11.1) 02/21/18 08:30 Absolute Neuts (auto) 4.1 K/mm3 (1.5-8.0) 02/21/18 08:30 Neutrophils % 51.4 % (42.8-82.8) 02/21/18 08:30 Lymphocytes % 32.3 % (8-40) 02/21/18 08:30 Monocytes % 8.3 % (3.8-10.2) 02/21/18 08:30 Eosinophils % 7.6 % (0-4.5) H 02/21/18 08:30 Basophils % 0.4 % (0-2.0) 02/21/18 08:30 Nucleated RBC % 0 % (0-0) 02/21/18 08:30 PT with INR 11.10 SEC (9.7-13.0) 02/21/18 08:30 INR 0.94 (0.83-1.09) 02/21/18 08:30 PTT (Actin FS) 24.1 SECONDS (25.2-36.5) L 02/21/18 08:30 Sodium 139 mmol/L (136-145) 02/21/18 08:30 Potassium 3.9 mmol/L (3.5-5.1) 02/21/18 08:30 Chloride 106 mmol/L (98-107) 02/21/18 08:30 Carbon Dioxide 25 mmol/L (21-32) 02/21/18 08:30 Anion Gap 8 MMOL/L (8-16) 02/21/18 08:30 BUN 9 mg/dL (7-18) 02/21/18 08:30 Creatinine 0.6 mg/dL (0.55-1.3) 02/21/18 08:30 Creat Clearance w eGFR > 60 (>60) 02/21/18 08:30 POC Glucometer [id number] UNITS (80-120) 02/21/18 07:20 Random Glucose 231 mg/dL (74-106) H 02/21/18 08:30 Hemoglobin A1c % 11.1 % (4.2-6.3) H 02/21/18 08:30 Calcium 8.6 mg/dL (8.5-10.1) 02/21/18 08:30 Phosphorus 3.4 mg/dL (2.5-4.9) 02/21/18 08:30 Magnesium 1.7 mg/dL (1.8-2.4) L 02/21/18 08:30 Total Bilirubin < 0.1 mg/dL (0.2-1) L 02/21/18 02:00 AST 17 U/L (15-37) 02/21/18 02:00 ALT 20 U/L (13-61) 02/21/18 02:00 Alkaline Phosphatase 123 U/L (45-117) H 02/21/18 02:00 Creatine Kinase 101 IU/L (26-192) 02/21/18 02:00 Troponin I < 0.02 ng/ml (0.00-0.05) 02/21/18 08:30 Total Protein 6.4 g/dl (6.4-8.2) 02/21/18 02:00 Albumin 3.0 g/dl (3.4-5.0) L 02/21/18 02:00 Triglycerides 126 mg/dL (0-150) 02/21/18 08:30 Cholesterol 126 mg/dL (50-200) 02/21/18 08:30 Total LDL Cholesterol 74 mg/dL (5-100) 02/21/18 08:30 HDL Cholesterol 46 mg/dL (40-60) 02/21/18 08:30 Serum , Qual Negative 02/21/18 02:00 ecg: sr nl intervals no ischemic changes tele: sr cxr: clear lungs a/p: 47 f hx dm, htn, hld here with cp. cp: -no signs acs, ecg and ce's unremarkable -atypical features (msk like) but has cad risk factors so will eval further with echo and nuclear stress test htn: -cont lisinopril hld: -cont statin dm: -poorly controlled if echo and stress test benign then ok for dc from cardiac pov
[2018-02-21] MEDS ORDERED: ASPIRIN 81 MG CHEWABLE TABLETS PO SCH (10:00)
[2018-02-21] MEDS ORDERED: LISINOPRIL 5 MG TABLET (FP) PO SCH (10:00)
[2018-02-21] MEDS ORDERED: REGADENOSON 0.4 MG/5 ML PRE-FILLED SYRINGE IVPUSH ONE (10:15)
[2018-02-21 14:54] VITALS: BP 130/73; PULSE 73; TEMP 97.9
--- NOTE | 2018-02-21 14:55 | DS ---
Physical Exam: SUBJECTIVE: Patient seen and examined; no new complaints. Doing well and wants to go home. CP likely musculoskeletal and is reporducible on examination. No other issues. Followup with PCP 1-3 days for DM followup visit. May use PRN APAP for controlling msk pain. OBJECTIVE: Vital Signs Period Temp Pulse Resp BP Sys/Medel Pulse Ox Last 24 Hr 98 F-98.7 F 65-86 18-20 119-155/75-87 98-99 PHYSICAL EXAM GENERAL: The patient is awake, alert, and fully oriented, in no acute distress. HEAD: Normal with no signs of trauma. EYES: PERRL, extraocular movements intact, sclera anicteric, conjunctiva clear. ENT: Ears normal, nares patent, oropharynx clear without exudates, moist mucous membranes. NECK: Trachea midline, full range of motion, supple. LUNGS: Breath sounds equal, clear to auscultation bilaterally, no wheezes, no crackles, no accessory muscle use. HEART: Regular rate and rhythm, S1, S2 without murmur, rub or gallop. ABDOMEN: Soft, nontender, nondistended, normoactive bowel sounds, no guarding, no rebound, no hepatosplenomegaly, no masses. EXTREMITIES: 2+ pulses, warm, well-perfused, no edema. NEUROLOGICAL: Cranial nerves II through XII grossly intact. Normal speech, gait not observed. PSYCH: Normal mood, normal affect. SKIN: Warm, dry, normal turgor, no rashes or lesions noted. LABS Laboratory Results - last 24 hr 02/21/18 02/21/18 02/21/18 02:00 02:00 02:00 WBC 8.3 RBC 4.57 Hgb 12.1 Hct 38.2 MCV 83.6 MCH 26.6 MCHC 31.8 L RDW 13.7 Plt Count 257 D MPV 10.3 Absolute Neuts (auto) 4.4 Neutrophils % 53.3 Lymphocytes % 31.0 D Monocytes % 7.4 Eosinophils % 7.3 H D Basophils % 1.0 Nucleated RBC % 0 PT with INR INR PTT (Actin FS) Sodium 139 Potassium 4.2 Chloride 105 Carbon Dioxide 27 Anion Gap 7 L BUN 11 Creatinine 0.7 Creat Clearance w eGFR > 60 POC Glucometer Random Glucose 313 H* Hemoglobin A1c % Calcium 8.7 Phosphorus Magnesium Total Bilirubin < 0.1 L AST 17 ALT 20 Alkaline Phosphatase 123 H Creatine Kinase 101 Troponin I < 0.02 Total Protein 6.4 Albumin 3.0 L Triglycerides Cholesterol Total LDL Cholesterol HDL Cholesterol Serum , Qual Negative 02/21/18 02/21/18 02/21/18 07:20 08:30 08:30 WBC 7.9 RBC 4.41 Hgb 11.7 Hct 36.7 MCV 83.1 MCH 26.6 MCHC 32.0 RDW 13.3 Plt Count 233 MPV 10.5 Absolute Neuts (auto) 4.1 Neutrophils % 51.4 Lymphocytes % 32.3 Monocytes % 8.3 Eosinophils % 7.6 H Basophils % 0.4 Nucleated RBC % 0 PT with INR 11.10 INR 0.94 PTT (Actin FS) 24.1 L Sodium Potassium Chloride Carbon Dioxide Anion Gap BUN Creatinine Creat Clearance w eGFR POC Glucometer 246.43733 Random Glucose Hemoglobin A1c % Calcium Phosphorus Magnesium Total Bilirubin AST ALT Alkaline Phosphatase Creatine Kinase Troponin I Total Protein Albumin Triglycerides Cholesterol Total LDL Cholesterol HDL Cholesterol Serum , Qual 02/21/18 02/21/18 02/21/18 08:30 08:30 08:30 WBC RBC Hgb Hct MCV MCH MCHC RDW Plt Count MPV Absolute Neuts (auto) Neutrophils % Lymphocytes % Monocytes % Eosinophils % Basophils % Nucleated RBC % PT with INR INR PTT (Actin FS) Sodium 139 Potassium 3.9 Chloride 106 Carbon Dioxide 25 Anion Gap 8 BUN 9 Creatinine 0.6 Creat Clearance w eGFR > 60 POC Glucometer Random Glucose 231 H Hemoglobin A1c % 11.1 H Calcium 8.6 Phosphorus 3.4 Magnesium 1.7 L Total Bilirubin AST ALT Alkaline Phosphatase Creatine Kinase Troponin I < 0.02 Cancelled Total Protein Albumin Triglycerides 126 Cholesterol 126 Total LDL Cholesterol 74 HDL Cholesterol 46 Serum , Qual 02/21/18 13:18 WBC RBC Hgb Hct MCV MCH MCHC RDW Plt Count MPV Absolute Neuts (auto) Neutrophils % Lymphocytes % Monocytes % Eosinophils % Basophils % Nucleated RBC % PT with INR INR PTT (Actin FS) Sodium Potassium Chloride Carbon Dioxide Anion Gap BUN Creatinine Creat Clearance w eGFR POC Glucometer 275 Random Glucose Hemoglobin A1c % Calcium Phosphorus Magnesium Total Bilirubin AST ALT Alkaline Phosphatase Creatine Kinase Troponin I Total Protein Albumin Triglycerides Cholesterol Total LDL Cholesterol HDL Cholesterol Serum , Qual HOSPITAL COURSE: Presented with atypical chest pain after moving her bed. She had negative troponins, an EKG with no ST-T changes concerning for acute infarct, and a normal exercise stress test. CP was reproducible and likely 2/2 musculoskeletal issues. She will thus be discharged home with followup with PCP for atypical likely musculoskeletal CP and can control it with OTC APAP. Her DM is poorly controlled an A1c is 11. Increased home metformin; discharging to followup with PCP. Informed her that followup needs to be soon given the degree of uncontrolled DM. She verbalized understanding. Knows when to return to ER. Counseled regarding morbid obesity (BMI >35) Aspirin for primary prevention added. Low dose BRITTANIE added for HTN; followup with PCP to check BMP and FU BP. Date of Admission:02/21/18 Date of Discharge: 02/21/18 Minutes to complete discharge: 35 Discharge Summary Reason For Visit: CHEST PAIN Current Active Problems Chest pain, atypical (Acute) Hyperglycemia (Acute) Condition: Fair - Instructions Diet, Activity, Other Instructions: Diet: Diabetic, low fat/sodium Activity: As tolerated Referrals: Blade Silvestre MD [Primary Care Provider] - 02/22/18 (Close followup for DM care; may need insulin) - Home Medications Comprehensive Discharge Medication List: Ambulatory Orders Aspirin [ASA -] 81 mg PO DAILY #30 tab.chew 02/21/18 Atorvastatin Ca [Lipitor] 40 mg PO HS #30 tablet 02/21/18 Lisinopril [Prinivil] 5 mg PO DAILY #30 tablet 02/21/18 Metformin HCl [Metformin HCl ER] 1,000 mg PO BID #60 tab.er.24 02/21/18 This patient is new to me today: Yes Date on this admission: 02/21/18 Emergency Visit: No Critical Care patient: No - Discharge Referral Referred to [facility] No
[2018-02-21] MEDS ORDERED: ATORVASTATIN CA 40 MG TABLET (FP) PO SCH (22:00)
== END 2018-02-21 17:32 | disposition home or self-care (01) ==
LOC: JER 23:44 → JERBED 02-21 02:58 → J4W 02-21 07:47
PROVIDERS: ADMIT Internal Medicine; ATTEND Internal Medicine
PROC: 3E013VG Introduction of Insulin into Subcutaneous Tissue, Percutaneous Approach (ICD-10-PCS; principal; 2018-02-21)
PROC: 3E013GC Introduction of Other Therapeutic Substance into Subcutaneous Tissue, Percutaneous Approach (ICD-10-PCS; 2018-02-21)
DX: R07.89 Other chest pain (principal); E11.65 Type 2 diabetes mellitus with hyperglycemia; I10 Essential (primary) hypertension; E78.5 Hyperlipidemia, unspecified; Z79.84 Long term (current) use of oral hypoglycemic drugs; Z79.82 Long term (current) use of aspirin
CPT/HCPCS: 36415; 71045-TC-FY; 78452-TC; 80048; 80053; 80061; 82550; 82962; 83036; 83721; 83735; 84100; 84484; 84703; 85025; 85610; 85730; 93005; 93010; 93017; 99283-25; A9502; G0378; J1644

== ENCOUNTER 2018-08-14 02:07 | Emergency (ER) | payer OTHER ==
[2018-08-14 02:35] VITALS: BMI 34.4
[2018-08-14] MEDS ORDERED: ACETAMINOPHEN 1000 MG/100 ML VIAL (NON FORMULARY) IVPB ONE (02:51)
--- NOTE | 2018-08-14 02:51 | PDOC ---
History of Present Illness - General Chief Complaint: Chest Pain Stated Complaint: CHEST PAIN Time Seen by Provider: 08/14/18 02:38 - History of Present Illness Initial Comments: 08/14/18 04:28 The patient is a 48 year old female with a significant PMH of DM and HTN who presents to the emergency department with chest pain since 9PM today. She states she was cooking at the onset of her chest pain. She describes the chest pain as right sided, constant, and nonpleuritic. Patient took 1 baby aspirin with no relief of her chest pain. Denies recent travel or sick contact. Patient was admitted on 02/21/18 for similar chest pain. Patient was found to have negative troponins, a normal EKG and a normal stress test then and discharged home. She was told the chest pain was likely musculoskeletal during that admission. Not on hormones. Denies trauma. Denies LE edema or calf pain. The patient denies shortness of breath, headache, dizziness, diaphoresis, focal weakness/numbness Denies fever, chills, nausea, vomit, diarrhea and constipation. Denies dysuria, frequency, urgency and hematuria. Allergies: NKAP ast surgical history: tubal ligation Social history: No reported alcohol, drug or cigarette PCP: Dr. Konrad Valles Past History - Past Medical History Allergies/Adverse Reactions: Allergies Allergy/AdvReac Type Severity Reaction Status Date / Time No Known Allergies Allergy Verified 08/14/18 02:32 Home Medications: Ambulatory Orders Aspirin [ASA -] 81 mg PO DAILY #30 tab.chew 02/21/18 Atorvastatin Ca [Lipitor] 40 mg PO HS #30 tablet 02/21/18 Lisinopril [Prinivil] 5 mg PO DAILY #30 tablet 02/21/18 metFORMIN HCL [Metformin ER Osmotic] 1,000 mg PO BID #60 tab.er.24 02/21/18 Anemia: No Asthma: No Cancer: No Cardiac Disorders: No CVA: No COPD: No CHF: No Dementia: No Diabetes: Yes GI Disorders: No Disorders: No HTN: Yes Hypercholesterolemia: No Liver Disease: No Seizures: No Thyroid Disease: No - Surgical History Abdominal Surgery: No Appendectomy: No Cardiac Surgery: No Cholecystectomy: No Lung Surgery: No Neurologic Surgery: No Orthopedic Surgery: No - Reproductive History (#): 9 Para: 8 Ectopic : No Polycystic Ovaries: No - Suicide/Smoking/Psychosocial Hx Smoking Status: No Smoking History: Never smoked Have you smoked in the past 12 months: No Number of Cigarettes Smoked Daily: 0 Information on smoking cessation initiated: No Hx Alcohol Use: No Drug/Substance Use Hx: No Substance Use Type: None Hx Substance Use Treatment: No Review of Systems - Review of Systems Comments:: 08/14/18 04:36 "GENERAL/CONSTITUTIONAL: No fever or chills. No weakness. HEAD, EYES, EARS, NOSE AND THROAT: No change in vision. No ear pain or discharge. No sore throat. GASTROINTESTINAL: No nausea, vomiting, diarrhea or constipation. GENITOURINARY: No dysuria, frequency, or change in urination. CARDIOVASCULAR: No shortness of breath. (+) chest pain. RESPIRATORY: No cough, wheezing, or hemoptysis. MUSCULOSKELETAL: No joint or muscle swelling or pain. No neck or back pain. SKIN: No rash NEUROLOGIC: No headache, vertigo, loss of consciousness, or change in strength/ sensation. ENDOCRINE: No increased thirst. No abnormal weight change. HEMATOLOGIC/LYMPHATIC: No anemia, easy bleeding, or history of blood clots. ALLERGIC/IMMUNOLOGIC: No hives or skin allergy." *Physical Exam - Vital Signs Last Vital Signs Temp Pulse Resp BP Pulse Ox 97.9 F 72 19 161/71 98 08/14/18 02:07 08/14/18 02:07 08/14/18 02:07 08/14/18 02:07 08/14/18 02:07 - Physical Exam Comments: 08/14/18 04:36 GENERAL: Awake, alert, and fully oriented, in no acute distress EYES: PERRLA, EOMI, sclera anicteric, conjunctiva clear ENT: Oropharynx clear without exudates. Moist mucosa NECK: Normal ROM, supple, no lymphadenopathy, JVD, or masses LUNGS: Breath sounds equal, clear to auscultation bilaterally. No wheezes, and no crackles HEART: Regular rate and rhythm, normal S1 and S2, no murmurs, rubs or gallops. + very reproducible R parasternal ttp ABDOMEN: Soft, nontender, normoactive bowel sounds. No guarding, no rebound. No masses EXTREMITIES: Normal range of motion, no edema. No cords, erythema, or tenderness NEUROLOGICAL: Normal speech, cranial nerves intact, equal strength and sensation b/l SKIN: Warm, Dry, normal turgor, no rashes or lesions noted. Heart Score/ECG Review - History History: Slightly suspicious - Electrocardiogram EKG: Non specific repolarization disturbance - Age Age: 45-65 - Risk Factors Based on the list above the patient has:: 1-2 risk factors - Troponin Troponin: </= normal limit - Score Heart Score - Total: 3 #1 08/14/18 04:45 Twelve-lead EKG was performed and reviewed by me. Normal sinus rhythm, rate 67. Normal axis and intervals. No ST elevations. ED Treatment Course - LABORATORY CBC & Chemistry Diagram: 08/14/18 02:53 08/14/18 02:53 Medical Decision Making - Medical Decision Making 08/14/18 04:46 48yo F hx HTN (states no longer needs meds per her PMD), DM presents to the ED with constant R sided CP that began while cooking. Vitals with elevated BP, otherwise unremarkable. Exam with reproducible CP, otherwise wnl. DDx includes ACS vs MSK pain vs PNA. PE unlikely, pt meets no PERC criteria. Plan for labs, XR, trop x2, reassess. 08/14/18 05:31 Pt reports complete resolution of CP, but now has gradual onset global headache since arriving to ED. Pt is neuro intact. WIll treat with toradol All initial labs including trop neg CXR clear on my read Plan for 2nd trop, reassess 08/14/18 06:35 Tropx2 neg Pt resting comfortably in bed, denies headache or CP REquests DC home Pt to f/u with Dr. Silvestre in 1-2 days Return precautions provided I discussed the physical exam findings, ancillary test results and final diagnoses with the patient. I answered all of the patient's questions. The patient was satisfied with the care received and felt comfortable with the discharge plan and treatment plan. The patient will call their primary care physician within 24 hours to arrange follow-up and will return to the Emergency Department with any new, persistent or worsening symptoms. *DC/Admit/Observation/Transfer Diagnosis at time of Disposition: Chest pain, Headache, Chest wall pain - Discharge Dispostion Disposition: HOME Condition at time of disposition: Improved Decision to Admit order: No - Referrals Referrals: Blade Silvestre MD [Primary Care Provider] - - Patient Instructions Printed Discharge Instructions: DI for Chest Pain Additional Instructions: Follow up with Dr. Silvestre within 1-2 days, as discussed Return to the emergency department if you have any new, worsening or concerning symptoms - Post Discharge Activity - Attestations Physician Attestion: 08/14/18 06:39 I, Dr. Samantha Raymundo MD, attest that this document has been prepared under my direction and personally reviewed by me in its entirety. I further attest, that it accurately reflects all work, treatment, procedures and medical decision -making performed by me.
[2018-08-14] MEDS ORDERED: ACETAMINOPHEN INJECTION 100 ML IVPB ONE (02:57)
[2018-08-14 03:10] LABS: BASO % 0.4 % (0-2.0); EOS % 5.2 % (0-4.5); HEMATOCRIT 37.7 % (32.4-45.2); HEMOGLOBIN 12.2 GM/dL (10.7-15.3); LYMPH % 37.8 % (8-40); MCH 27.2 pg (25.7-33.7); MCHC 32.4 g/dl (32.0-36.0); MEAN PLT VOLUME 10.2 fl (7.5-11.1); MONO % 7.3 % (3.8-10.2); NEUT % 49.3 % (42.8-82.8); PLATELET COUNT 239 K/MM3 (134-434); RBC 4.49 M/mm3 (3.60-5.2); RDW 14.3 % (11.6-15.6); WHITE BLOOD COUNT 8.5 K/mm3 (4.0-10.0)
[2018-08-14 03:35] LABS: MAGNESIUM 1.9 mg/dL (1.8-2.4)
[2018-08-14 03:46] LABS: ANION GAP 8 MMOL/L (8-16); BLOOD UREA NITROGEN 12 mg/dL (7-18); CALCIUM 8.1 mg/dL (8.5-10.1); CHLORIDE 106 mmol/L (98-107); CO2 27 mmol/L (21-32); CREATININE 1.1 mg/dL (0.55-1.3); POTASSIUM 3.8 mmol/L (3.5-5.1); SODIUM 141 mmol/L (136-145)
[2018-08-14 04:24] LABS: GLUCOSE,RANDOM 364 mg/dL (74-106)
[2018-08-14] MEDS ORDERED: KETOROLAC TROMETHAMINE 15 MG/ML VIAL IVPUSH ONE (05:28)
[2018-08-14] MEDS ORDERED: KETOROLAC TROMETHAMINE 15 MG/ML VIAL ONE (05:31)
[2018-08-14 06:17] VITALS: BP 114/68; PULSE 60; TEMP 98.4
--- NOTE | 2018-08-14 11:06 | EKG ---
Test Reason : Blood Pressure : / mmHG Vent. Rate : 067 BPM Atrial Rate : 067 BPM P-R Int : 140 ms QRS Dur : 104 ms QT Int : 402 ms P-R-T Axes : 042 007 016 degrees QTc Int : 424 ms NORMAL SINUS RHYTHM CANNOT RULE OUT INFERIOR INFARCT , AGE UNDETERMINED ABNORMAL ECG WHEN COMPARED WITH ECG OF 21-FEB-2018 00:03, NO SIGNIFICANT CHANGE WAS FOUND Confirmed by LEELA PEREZ, EVGENY ([id number]) on 08/14/2018 11:06:13 AM Referred By: Confirmed By:EVGENY SWENSON MD
== END 2018-08-14 06:46 | disposition home or self-care (01) ==
LOC: JER 02:07
PROC: 3E033NZ Introduction of Analgesics, Hypnotics, Sedatives into Peripheral Vein, Percutaneous Approach (ICD-10-PCS; principal; 2018-08-14)
PROC: 3E0337Z Introduction of Electrolytic and Water Balance Substance into Peripheral Vein, Percutaneous Approach (ICD-10-PCS; 2018-08-14)
DX: R07.89 Other chest pain (principal); R07.9 Chest pain, unspecified; R51 Headache
CPT/HCPCS: 36415; 71045-TC-FY; 80048; 83735; 84484; 84703; 85025; 93005; 93010; 99282-25; J0131

== ENCOUNTER 2018-10-12 02:30 | Emergency (ER) | payer OTHER ==
[2018-10-12 02:49] VITALS: BP 141/70; PULSE 109; TEMP 100.6; BMI 33.5
[2018-10-12] MEDS ORDERED: ACETAMINOPHEN 325 MG TABLET (FP) PO ONE (03:31)
[2018-10-12] MEDS ORDERED: ACETAMINOPHEN 325 MG TABLET (FP) ONE (04:00)
[2018-10-12] MEDS ORDERED: PENICILLIN G BENZATHINE 1,200,000 UNIT/2 ML PFS IM ONE ×2 (04:33→04:40)
--- NOTE | 2018-10-12 04:39 | PDOC ---
History of Present Illness - General History Source: Patient Exam Limitations: No Limitations <Emily Mccormick - Last Filed: 10/12/18 04:34> <Litzy Quintana - Last Filed: 10/12/18 07:24> - General Chief Complaint: SIRS, Suspected/Possible Stated Complaint: FEVER Time Seen by Provider: 10/12/18 03:21 Past History - Past Medical History Anemia: No Asthma: No Cancer: No Cardiac Disorders: No CVA: No COPD: No CHF: No Dementia: No Diabetes: Yes GI Disorders: No Disorders: No HTN: Yes Hypercholesterolemia: No Liver Disease: No Seizures: No Thyroid Disease: No - Surgical History Abdominal Surgery: No Appendectomy: No Cardiac Surgery: No Cholecystectomy: No Lung Surgery: No Neurologic Surgery: No Orthopedic Surgery: No - Reproductive History (#): 9 Para: 8 Ectopic : No Polycystic Ovaries: No - Immunization History Immunization Up to Date: Yes - Suicide/Smoking/Psychosocial Hx Smoking Status: No Smoking History: Never smoked Have you smoked in the past 12 months: No Number of Cigarettes Smoked Daily: 0 Information on smoking cessation initiated: No Hx Alcohol Use: No Drug/Substance Use Hx: No Substance Use Type: None Hx Substance Use Treatment: No <Emily Mccormick - Last Filed: 10/12/18 04:34> <Litzy Quintana - Last Filed: 10/12/18 07:24> - Past Medical History Allergies/Adverse Reactions: Allergies Allergy/AdvReac Type Severity Reaction Status Date / Time No Known Allergies Allergy Verified 10/12/18 02:47 Home Medications: Ambulatory Orders Aspirin [ASA -] 81 mg PO DAILY #30 tab.chew 02/21/18 Atorvastatin Ca [Lipitor] 40 mg PO HS #30 tablet 02/21/18 Lisinopril [Prinivil] 5 mg PO DAILY #30 tablet 02/21/18 metFORMIN HCL [Metformin ER Osmotic] 1,000 mg PO BID #60 tab.er.24 02/21/18 *Physical Exam - Vital Signs Last Vital Signs Temp Pulse Resp BP Pulse Ox 100.6 F H 109 H 18 141/70 98 10/12/18 02:47 10/12/18 02:47 10/12/18 02:47 10/12/18 02:47 10/12/18 02:47 - Physical Exam General Appearance: No: Apparent Distress HEENT: positive: Pharyngeal Erythema (mild), Other (R tonsillar slightly more swollen than left, uvula midline, no tonsillar exudates noted). negative: Tonsillar Exudate Neck: positive: Lymphadenopathy (R) Respiratory/Chest: positive: Lungs Clear, Normal Breath Sounds. negative: Respiratory Distress Cardiovascular: positive: Regular Rhythm, Tachycardia. negative: Murmur Gastrointestinal/Abdominal: positive: Normal Bowel Sounds, Soft. negative: Tender, Distended, Guarding, Rebound Integumentary: positive: Normal Color Neurologic: positive: Alert, Normal Mood/Affect <Emily Mccormick - Last Filed: 10/12/18 04:34> - Vital Signs Last Vital Signs Temp Pulse Resp BP Pulse Ox 100.6 F H 109 H 18 141/70 98 10/12/18 02:47 10/12/18 02:47 10/12/18 02:47 10/12/18 02:47 10/12/18 02:47 <Litzy Quintana - Last Filed: 10/12/18 07:24> ED Treatment Course - Medications Given in the ED: ED Medications Discontinued Medications Generic Name Dose Route Start Last Admin Trade Name Freq PRN Reason Stop Dose Admin Acetaminophen 975 mg 10/12/18 03:31 10/12/18 04:00 Tylenol - PO 10/12/18 03:32 975 mg ONCE ONE Administration <Emily Mccormick - Last Filed: 10/12/18 04:34> - Medications Given in the ED: ED Medications Discontinued Medications Generic Name Dose Route Start Last Admin Trade Name Freq PRN Reason Stop Dose Admin Acetaminophen 975 mg 10/12/18 03:31 10/12/18 04:00 Tylenol - PO 10/12/18 03:32 975 mg ONCE ONE Administration Ibuprofen 800 mg 10/12/18 04:48 10/12/18 04:50 Motrin - PO 10/12/18 04:49 800 mg ONCE ONE Administration Penicillin G Benzathine 1,200,000 unit 10/12/18 04:33 10/12/18 04:35 Bicillin L-A - IM 10/12/18 04:34 1,200,000 unit ONCE ONE Administration <Litzy Quintana - Last Filed: 10/12/18 07:24> Medical Decision Making - Medical Decision Making 48 y/o F hx of HTN, HLD, DM presents with feeling "sick" from yesterday. Mentions feeling hot, having sore throat, body aches, chills, headache and mild dry cough. Went to [facility] yesterday but states no testing was done; she was given prescription for Azithromycin, Lidocaine and Motrin. She last took Motrin at 1 PM. She has only taken 500 mg of Azithromycin thus far. Returns as not feeling better yet. Denies sob, cp, abd pain, n/v/d, rash. Flu negative Rapid step positive Will treat with IM penicillin 10/12/18 04:36 <Emily Mccormick - Last Filed: 10/12/18 04:34> - Medical Decision Making The patient was seen and evaluated in conjunction with midlevel provider under my direct supervision, ancillary studies were reviewed. I agree with the plan as outlined ANGIE Mccormick. HPI, workup/dispo as outlined. VS reviewed, fever and mild tachycardia, nontoxic, airway intact strep positive, treat with IM pcn. 10/12/18 07:24 10/12/18 07:24 <Litzy Quintana - Last Filed: 10/12/18 07:24> *DC/Admit/Observation/Transfer - Discharge Dispostion Decision to Admit order: No <Emily Mccormick - Last Filed: 10/12/18 04:34> <Litzy Quintana - Last Filed: 10/12/18 07:24> Diagnosis at time of Disposition: Strep pharyngitis - Discharge Dispostion Disposition: HOME Condition at time of disposition: Stable - Referrals Referrals: Blade Silvestre MD [Primary Care Provider] - 2 Days - Patient Instructions Printed Discharge Instructions: DI for Strep Throat Additional Instructions: Thank you for choosing [facility]. It was a pleasure taking care of you. You were treated here for strep throat. You may take Motrin 600 mg every 6 hours by mouth as needed for mild to moderate pain. Take Motrin with food. Do salt water gargles to help with throat pain Follow-up with your doctor in 2 days Return to the Emergency Department if your symptoms worsen or persist or have other concerning symptoms. - Post Discharge Activity Forms/Work/School Notes: Back to Work
[2018-10-12] MEDS ORDERED: IBUPROFEN 400 MG TABLET (FP) PO ONE ×2 (04:48→04:50)
== END 2018-10-12 05:11 | disposition home or self-care (01) ==
LOC: JER 02:30
DX: J02.0 Streptococcal pharyngitis (principal); B95.0 Streptococcus, group A, as the cause of diseases classified elsewhere; I10 Essential (primary) hypertension; E11.9 Type 2 diabetes mellitus without complications; Z79.84 Long term (current) use of oral hypoglycemic drugs
CPT/HCPCS: 87804; 87880; 96372; 99281-25

== ENCOUNTER 2018-11-19 15:43 | Emergency (ER) | payer OTHER ==
--- NOTE | 2018-11-19 15:58 | PDOC ---
Rapid Medical Evaluation Time Seen by Provider: 11/19/18 15:57 Medical Evaluation: Allergies Allergy/AdvReac Type Severity Reaction Status Date / Time No Known Allergies Allergy Verified 11/19/18 15:57 11/19/18 15:58 I have performed a brief in-person evaluation of this patient. The patient presents with a chief complaint of:CP today. No sob, diaphoresis, n/ v. Similar pain in past. Was admitted for same 02/2018 and had neg stress test. CP thought to be MSK per cards notes Pertinent physical exam findings:stable w/ clear chest/lungs I have ordered the following:ekg/labs The patient will proceed to the ED for further evaluation Discharge Disposition - Diagnosis Chest pain Qualifiers: Chest pain type: unspecified Qualified Code(s): R07.9 - Chest pain, unspecified - Referrals - Patient Instructions - Post Discharge Activity
[2018-11-19 16:03] VITALS: BP 148/91; PULSE 76; TEMP 97.5; BMI 33.5
--- NOTE | 2018-11-20 10:30 | EKG ---
Test Reason : Blood Pressure : / mmHG Vent. Rate : 065 BPM Atrial Rate : 065 BPM P-R Int : 140 ms QRS Dur : 106 ms QT Int : 410 ms P-R-T Axes : 042 026 035 degrees QTc Int : 426 ms NORMAL SINUS RHYTHM INCOMPLETE RIGHT BUNDLE BRANCH BLOCK BORDERLINE ECG WHEN COMPARED WITH ECG OF 14-AUG-2018 02:06, INCOMPLETE RIGHT BUNDLE BRANCH BLOCK IS NOW PRESENT MINIMAL CRITERIA FOR INFERIOR INFARCT ARE NO LONGER PRESENT Confirmed by LEELA PEREZ, EVGENY ([id number]) on 11/20/2018 10:29:50 AM Referred By: Confirmed By:EVGENY SWENSON MD
== END 2018-11-19 16:43 | disposition left against medical advice (07) ==
LOC: JERFT 15:43
DX: R07.9 Chest pain, unspecified (principal)
CPT/HCPCS: 93005; 93010; 99281-25

== ENCOUNTER 2019-05-08 22:19 | Emergency (ER) | payer OTHER ==
[2019-05-08 22:30] VITALS: BP 164/104; PULSE 74; TEMP 98.1; BMI 31.0
--- NOTE | 2019-05-09 01:01 | PDOC ---
History of Present Illness - General Chief Complaint: Pain, Acute Stated Complaint: PAIN Time Seen by Provider: 05/09/19 00:46 History Source: Patient Exam Limitations: No Limitations - History of Present Illness Initial Comments: 05/09/19 00:56 Patient is a 48F with history of DM and HTN here today complaining of tooth pain that started one week ago. She was seen at [facility] for this, given toradol , antibiotics and told to see her dentist. She was able to get an appointment on 06/03. She's presenting today because the pain has continued. Denies fevers, chills, nausea, vomiting, shortness of breath, chest pain, neck pain, headache. Past History - Past Medical History Allergies/Adverse Reactions: Allergies Allergy/AdvReac Type Severity Reaction Status Date / Time No Known Allergies Allergy Verified 11/19/18 15:58 Home Medications: Ambulatory Orders Aspirin [ASA -] 81 mg PO DAILY #30 tab.chew 02/21/18 Atorvastatin Ca [Lipitor] 40 mg PO HS #30 tablet 02/21/18 Lisinopril [Prinivil] 5 mg PO DAILY #30 tablet 02/21/18 metFORMIN HCL [Metformin ER Osmotic] 1,000 mg PO BID #60 tab.er.24 02/21/18 Anemia: No Asthma: No Cancer: No Cardiac Disorders: No CVA: No COPD: No CHF: No Dementia: No Diabetes: Yes GI Disorders: No Disorders: No HTN: Yes Hypercholesterolemia: No Liver Disease: No Seizures: No Thyroid Disease: No - Surgical History Abdominal Surgery: No Appendectomy: No Cardiac Surgery: No Cholecystectomy: No Lung Surgery: No Neurologic Surgery: No Orthopedic Surgery: No - Reproductive History (#): 9 Para: 8 Ectopic : No Polycystic Ovaries: No - Immunization History Immunization Up to Date: Yes - Psycho Social/Smoking Cessation Hx Smoking Status: No Smoking History: Never smoked Have you smoked in the past 12 months: No Number of Cigarettes Smoked Daily: 0 Hx Alcohol Use: No Drug/Substance Use Hx: No Substance Use Type: None Hx Substance Use Treatment: No Review of Systems - Review of Systems Able to Perform ROS?: Yes Comments:: 05/09/19 01:01 GENERAL/CONSTITUTIONAL: No fever or chills. No weakness. HEAD, EYES, EARS, NOSE AND THROAT: No change in vision. No sore throat. + toothache CARDIOVASCULAR: No chest pain or shortness of breath RESPIRATORY: No cough, wheezing, or hemoptysis. GASTROINTESTINAL: No nausea, vomiting, diarrhea or constipation. GENITOURINARY: No dysuria, frequency, or change in urination. MUSCULOSKELETAL: No joint or muscle swelling or pain. No neck or back pain. SKIN: No rash NEUROLOGIC: No headache, vertigo, loss of consciousness, or change in strength/ sensation. ALLERGIC/IMMUNOLOGIC: No hives or skin allergy. *Physical Exam - Vital Signs Last Vital Signs Temp Pulse Resp BP Pulse Ox 98.1 F 74 19 164/104 H 99 05/08/19 22:27 05/08/19 22:27 05/08/19 22:27 05/08/19 22:27 05/08/19 22:27 - Physical Exam 05/09/19 01:02 GENERAL: Awake, alert, and fully oriented, in no acute distress HEAD: No signs of trauma, normocephalic, atraumatic EYES: PERRLA, EOMI, sclera anicteric, conjunctiva clear ENT: Auricles normal inspection, hearing grossly normal, nares patent, oropharynx clear without exudates. Moist mucosa. +dental carry in left posterior molar, no signs of abscess. NECK: Normal ROM, supple, no lymphadenopathy, JVD, or masses LUNGS: No distress, speaks full sentences, clear to auscultation bilaterally HEART: Regular rate and rhythm, normal S1 and S2, no murmurs, rubs or gallops, peripheral pulses normal and equal bilaterally. ABDOMEN: Soft, nontender, normoactive bowel sounds. No guarding, no rebound. No masses EXTREMITIES: Normal inspection, Normal range of motion, no edema. No clubbing or cyanosis. NEUROLOGICAL: Cranial nerves II through XII grossly intact. Normal speech, normal gait, no focal sensorimotor deficits SKIN: Warm, Dry, normal turgor, no rashes or lesions noted. Medical Decision Making - Medical Decision Making 05/09/19 00:56 Patient is 48F here today with dental pain 2/2 carry. Vitals normal and stable. No signs of abscess or ludwigs. Already on antibiotics. Frustrated that they cannot get in to see dentist. Will discharge home with dental referrals. Discharge - Discharge Information Problems reviewed: Yes Clinical Impression/Diagnosis: Pain due to dental caries Condition: Stable Disposition: HOME - Admission No - Follow up/Referral - Patient Discharge Instructions Patient Printed Discharge Instructions: DI for Dental Pain Additional Instructions: Please follow up with your dentist or the dentist below. You can call to make an appointment or attempt to walk in. If you walk in, please get there at 8am because they only take the next 15 patients. Sherrell un seguimiento con ho dentista o el dentista a continuacin. Puede llamar para hacer roberto damaris o intentar entrar. Si ingresa, llegue a las 8 am porque solo aceptan a los siguientes [address] [place], [place] [address] General Dentistry, Pediatric Dentistry, and Oral / Maxillofacial Surgery Clinic For an appointment call: [facility] [address] [place] [id number] General Dentistry, Pediatric Dentistry, and Oral / Maxillofacial Surgery Clinic For an appointment call: - Post Discharge Activity
[2019-05-09] MEDS ORDERED: IBUPROFEN 600 MG TABLET (FP) PO ONE ×2 (01:06→01:07)
--- NOTE | 2019-05-09 01:32 | PDOC ---
Attending Attestation - Resident Resident Name: Tarun Kim - ED Attending Attestation I have performed the following: I have examined & evaluated the patient, The case was reviewed & discussed with the resident, I agree w/resident's findings & plan, Exceptions are as noted
== END 2019-05-09 01:14 | disposition home or self-care (01) ==
LOC: JER 22:19
DX: K02.9 Dental caries, unspecified (principal); I10 Essential (primary) hypertension; E11.9 Type 2 diabetes mellitus without complications; Z79.84 Long term (current) use of oral hypoglycemic drugs
CPT/HCPCS: 99281-25

== ENCOUNTER 2020-07-26 03:01 | Emergency (ER) | payer OTHER ==
[2020-07-26 03:39] VITALS: TEMP 97.9; BMI 32.0
[2020-07-26 04:11] LABS: BASO % 0.8 % (0-2.0); EOS % 7.6 % (0-4.5); HEMATOCRIT 38.4 % (32.4-45.2); HEMOGLOBIN 12.4 GM/dL (10.7-15.3); LYMPH % 38.8 % (8-40); MCH 27.9 pg (25.7-33.7); MCHC 32.4 g/dl (32.0-36.0); MEAN CELL VOLUME 86.3 fl (80-96); MONO % 9.6 % (3.8-10.2); NEUT % 43.2 % (42.8-82.8); PLATELET COUNT 219 K/MM3 (134-434); RBC 4.45 M/mm3 (3.60-5.2); RDW 13.2 % (11.6-15.6); WHITE BLOOD COUNT 7.7 K/mm3 (4.0-10.0)
[2020-07-26 04:39] LABS: CHLORIDE 104 mmol/L (98-107); POTASSIUM 4.1 mmol/L (3.5-5.1); SODIUM 136 mmol/L (136-145)
[2020-07-26 04:42] LABS: CALCIUM 9.3 mg/dL (8.5-10.1)
[2020-07-26 04:43] LABS: ALBUMIN 3.3 g/dl (3.4-5.0); ANION GAP 4 MMOL/L (8-16); BLOOD UREA NITROGEN 19.2 mg/dL (7-18); CO2 28 mmol/L (21-32); GLUCOSE,RANDOM 360 mg/dL (74-106)
[2020-07-26 04:45] LABS: CREATININE 0.7 mg/dL (0.55-1.3); SGOT/AST 10 U/L (15-37); SGPT/ALT 28 U/L (13-61)
[2020-07-26 04:47] LABS: BILIRUBIN,TOTAL 0.2 mg/dL (0.2-1); TOT PROT 6.9 g/dl (6.4-8.2)
[2020-07-26 04:49] LABS: ALK PHOS 198 U/L (45-117)
[2020-07-26] MEDS ORDERED: INSULIN REGULAR HUMAN 100 UNITS/ML *VIAL IVPUSH ONE (05:23)
[2020-07-26] MEDS ORDERED: INSULIN REGULAR HUMAN 100 UNITS/ML *VIAL ONE (05:27)
[2020-07-26] MEDS ORDERED: KETOROLAC TROMETHAMINE 15 MG/ML VIAL IVPUSH ONE (05:30)
[2020-07-26 05:51] VITALS: BP 159/85; PULSE 80
== END 2020-07-26 05:51 | disposition home or self-care (01) ==
LOC: JER 03:01
PROC: 3E013VG Introduction of Insulin into Subcutaneous Tissue, Percutaneous Approach (ICD-10-PCS; principal; 2020-07-26)
DX: R07.89 Other chest pain (principal)
CPT/HCPCS: 36415; 71045-TC-FY; 80053; 82550; 84484; 85025; 93005; 93010; 96374; 99285-25

== ENCOUNTER 2022-06-20 04:45 | Emergency (ER) | payer OTHER ==
[2022-06-20 05:01] VITALS: BMI 30.2
[2022-06-20] MEDS ORDERED: FAMOTIDINE 20 MG/50 ML IVPB 20 MG/50 ML MG IVPB ONE ×2 (05:08→05:35)
[2022-06-20] MEDS ORDERED: LACTATED RINGERS SOLUTION 1000 ML INFUS.BAG IV ONE (05:35)
[2022-06-20] MEDS ORDERED: ONDANSETRON 4 MG/2 ML VIAL IVPUSH ONE (05:35)
[2022-06-20] MEDS ORDERED: ONDANSETRON 4 MG/2 ML VIAL ONE (05:36)
[2022-06-20 06:04] LABS: VENOUS BASE EXCESS 1.6 mmol/L (-2-2); VENOUS O2 SATURATION 83.8 % (70-80); VENOUS PCO2 47.1 mmHg (38-52); VENOUS PH 7.381 (7.310-7.410)
[2022-06-20 06:32] LABS: BASO % 0.6 % (0-2.0); EOS % 3.4 % (0-4.5); HEMATOCRIT 39.6 % (32.4-45.2); HEMOGLOBIN 12.8 GM/dL (10.7-15.3); LYMPH % 29.9 % (8-40); MCH 27.2 pg (25.7-33.7); MCHC 32.4 g/dl (32.0-36.0); MONO % 6.6 % (3.8-10.2); NEUT % 59.5 % (42.8-82.8); PLATELET COUNT 255 10^3/uL (134-434); RBC 4.71 M/mm3 (3.60-5.2); WHITE BLOOD COUNT 8.8 K/mm3 (4.0-10.0)
[2022-06-20 06:39] LABS: INR 1.05 (0.83-1.09); PROTHROMBIN TIME (PATIENT) 12.2 SEC (9.7-13.0)
[2022-06-20 06:50] LABS: ALBUMIN 3.5 g/dl (3.4-5.0); BLOOD UREA NITROGEN 9.4 mg/dL (7-18)
[2022-06-20 06:54] LABS: CREATININE 0.5 mg/dL (0.55-1.3)
[2022-06-20 06:55] LABS: BILIRUBIN,TOTAL 0.8 mg/dL (0.2-1); TOT PROT 7.3 g/dl (6.4-8.2)
[2022-06-20 08:24] LABS: PH,URINE 6.5 (5.0-8.0); URINE APPEARANCE CLEAR; URINE BILIRUBIN NEGATIVE (NEGATIVE); URINE COLOR YELLOW; URINE GLUCOSE (UA) NEGATIVE (NEGATIVE); URINE KETONE NEGATIVE (NEGATIVE); URINE LEUK ESTERASE NEGATIVE (NEGATIVE); URINE NITRITE NEGATIVE (NEGATIVE); URINE PROTEIN TRACE (NEGATIVE); URINE UROBILINOGEN 0.2 mg/dL (0.2-1.0)
[2022-06-20] MEDS ORDERED: ACETAMINOPHEN 1000 MG/100 ML BAG IVPB ONE (08:32)
[2022-06-20] MEDS ORDERED: ACETAMINOPHEN INJECTION 100 ML IVPB ONE (09:08)
[2022-06-20 09:15] VITALS: RESP 18
[2022-06-20 10:03] VITALS: TEMP 98.6
[2022-06-20 12:39] VITALS: BP 143/90; PULSE 92
== END 2022-06-20 12:42 | disposition home or self-care (01) ==
LOC: JER 04:45
PROC: 3E0333Z Introduction of Anti-inflammatory into Peripheral Vein, Percutaneous Approach (ICD-10-PCS; principal; 2022-06-20)
PROC: 3E033GC Introduction of Other Therapeutic Substance into Peripheral Vein, Percutaneous Approach (ICD-10-PCS; 2022-06-20)
PROC: 3E033GC Introduction of Other Therapeutic Substance into Peripheral Vein, Percutaneous Approach (ICD-10-PCS; 2022-06-20)
DX: R11.10 Vomiting, unspecified (principal)
CPT/HCPCS: 0241U-QW; 36415; 71045-TC-FY; 71260-TC; 74177-TC; 80053; 81003; 82010; 82272; 82803; 83690; 83735; 84484; 85025; 85610; 85730; 86850; 86900; 86901; 87086; 93005; 93010; 99285-25